=== PATIENT | male | born 1960 | race Hispanic/Latino ===

== ENCOUNTER 2016-12-31 18:33 | Emergency (ER) | payer MEDICARE ==
[~2016-12-31] VITALS: Ht 162.6 cm; Wt 84.0 kg
[~2016-12-31 18:33] MED LIST: ACCUPRIL20 MG OR; ADULT ASA81 MG OR; AFRIN NASAL SP0.05 %; AMANTADINE100 M1 PO; AMARYL4 MG OR; AMLODIPINE10 MG PO; AMLODIPINE5 MG PO; AMOXICILLIN/PO500 MG PO; ASPIRIN CHEWABL81 MG OR; ASPIRIN LOW DOS81 M2 PO; ASPIRIN325 MG PO; AUGMENTIN PO; AVELOX400 MG PO; BAYER ASA325 MG PO; BAYER ASPIRIN E81 MG PO; CEPHALEXIN500 MG PO; CIPRO XR500 M2 PO; CLONIDINE0.1 MG OR; CLONIDINE0.1 MG PO; CLONIDINE0.2 MG OR; CLONIDINE0.2 MG PO; COLCHICINE PO; COLCHICINE0.6 MG PO; CYCLOBENZAPR10 MG PO; DIOVAN80 MG PO; DOCUSATE CAL240 MG PO; DOXYCYCL HYC100 MG PO; EFFIENT10 MG PO; ENALAPRIL10 MG OR; ENALAPRIL10 MG PO; FIORICET PO; FLAGYL ER750 MG PO; FLAGYL500 MG OR; FLEXERIL10 MG PO; FUROSEMIDE40 MG OR; FUROSEMIDE40 MG PO; GENERLAC PO; HCTZ OR; HYDRALAZINE25 MG PO; HYDROCO/APAP1 T10 OR; ISOSORB MONO30 MG PO; KLOR-CON 1010 MEQ OR; LANTUS100 MG/ML SC; LASIX 40 MG TAB40 MG PO; LASIX 40 MG40 MG/TAB PO; LIPITOR10 MG OR; LIPITOR40 M1 PO; LIPITOR40 MG PO; LISINOPRIL10 MG PO; LOPRESSOR50 MG OR; LORTAB 1010 MG PO; LORTAB 5 PO; LORTAB 5/3255 MG PO; LOTRISONE TOP; MECLIZINE25 MG PO; MEDDOSEPAK PO; NAPROSYN500 MG OR; NITROSTAT0.4 MG SL; NORVASC10 M1 PO; NORVASC10 MG OR; NORVASC10 MG PO; NORVASC5 M1 PO; OMEPRAZOLE20 MG PO; OXYCODO-APAP1 TAB PO; PAXIL30 MG PO; PEPCID20 MG PO; PHOSLO667 M1 PO; PLAVIX75 MG PO; RELION 70/30 SC; RENO PO; ROBITUSSIN AC10 ML OR; ROBITUSSIN AC10 ML PO; SODIUM BICARBI650 MG PO; TOPROL XL100 MG PO; TOPROL XL200 M1 PO; TOPROL XL50 MG OR; TRAMADOL HCL50 MG PO; TRUETEST STRIPS VI; TRUETEST STRIPS XX; VASOTEC20 MG PO; VITAMIN D-32000 UNI1 PO; VITAMIN D32000 UNIT PO; XANAX0.5 MG PO; ZITHROMAX250 MG PO; ZOFRAN ODT4 MG PO; ZPAK PO; ZYRTEC-D AL1 PO; [UNRECOGNIZED DRUG - OTHER] OR; [UNRECOGNIZED DRUG - OTHER] SC; [UNRECOGNIZED DRUG - SUPPLY]; [UNRECOGNIZED DRUG - SUPPLY] SC; asa OR
[2016-12-31 19:25] LABS: HEMATOCRIT 29.7 % (39.0-50.0); HEMOGLOBIN 10.2 g/dl (14.0-18.0); IMMATURE GRANULOCYTES 0.3 % (0.0-1.0); MEAN CORPUSCULAR HGB 33.7 pG CALC (26.0-32.0); MEAN CORPUSCULAR HGB CONC 34.3 g/L CALC (32.0-36.0); NEUT# 6.12 thou/uL (1.82-7.42); RED BLOOD COUNT 3.03 mill/uL (4.70-6.10); RED CELL DISTRI WIDTH 14.4 % (11.5-15.5)
[2016-12-31 19:42] LABS: ALBUMIN 3.8 g/dL (3.2-5.0); BILIRUBIN, TOTAL 0.6 mg/dL (0.0-1.4); CALCIUM 9.4 mg/dL (8.4-10.2); CREATININE 4.3 mg/dL (0.7-1.3); TOTAL PROTEIN 7.6 g/dL (6.3-8.2)
[2016-12-31] MEDS ORDERED: METRONIDAZOL500 MG PO (20:07)
[2016-12-31] MEDS ORDERED: CIPROFLOXACN750 MG PO (20:07)
[2016-12-31] MEDS ORDERED: ULTRAM50 M1 PO (20:08)
[2016-12-31 20:16] VITALS: BP 157/84
[2017-01-01] MEDS ORDERED: ZOFRAN ODT4 MG PO (04:46)
[2017-01-01] MEDS ORDERED: ANTIVERT PO (06:45)
[2017-01-01] MEDS ORDERED: PHENERGAN25 MG/TAB PO (06:45)
== END 2016-12-31 20:24 | disposition home or self-care (01) ==
LOC: ED 18:33
DX: K57.32 Diverticulitis of large intestine without perforation or abscess without bleeding (principal); R10.32 Left lower quadrant pain; R10.9 Unspecified abdominal pain; K44.9 Diaphragmatic hernia without obstruction or gangrene

== ENCOUNTER 2017-01-01 03:40 | Emergency (ER) | payer MEDICARE ==
[~2017-01-01] VITALS: Ht 162.6 cm; Wt 84.0 kg
[~2017-01-01 03:40] MED LIST changes: +CIPROFLOXACN750 MG PO; +METRONIDAZOL500 MG PO; +ULTRAM50 M1 PO
[2017-01-01 04:24] LABS: URINE BILIRUBIN - DIPSTICK NEGATIVE (NEGATIVE); URINE BLOOD DIPSTICK TRACE-INTACT (NEGATIVE); URINE CLARITY CLEAR; URINE COLOR YELLOW; URINE GLUCOSE - DIPSTICK 100 mg/dL (NEGATIVE); URINE KETONE NEGATIVE (NEGATIVE); URINE LEUK ESTERASE NEGATIVE (NEGATIVE); URINE NITRITE - DIPSTICK NEGATIVE (Negative); URINE PROTEIN - DIPSTICK 100 mg/dL (NEG-TRACE); URINE SPECIFIC GRAVITY 1.015; URINE UROBILINOGEN - DIPSTICK 0.2 E.U./dL (0.2)
[2017-01-01 04:33] LABS: HEMATOCRIT 32.3 % (39.0-50.0); HEMOGLOBIN 10.9 g/dl (14.0-18.0); IMMATURE GRANULOCYTES 0.6 % (0.0-1.0); MEAN CELL VOLUME 99.7 fL CALC (80.0-100.0); MEAN CORPUSCULAR HGB 33.6 pG CALC (26.0-32.0); MEAN CORPUSCULAR HGB CONC 33.7 g/L CALC (32.0-36.0); NEUT# 7.58 thou/uL (1.82-7.42); RED BLOOD COUNT 3.24 mill/uL (4.70-6.10); RED CELL DISTRI WIDTH 14.5 % (11.5-15.5)
[2017-01-01 04:39] LABS: ALBUMIN 4.2 g/dL (3.2-5.0); BILIRUBIN, TOTAL 0.7 mg/dL (0.0-1.4); CALCIUM 9.6 mg/dL (8.4-10.2); TOTAL PROTEIN 8.2 g/dL (6.3-8.2)
[2017-01-01 04:40] LABS: URINE BACTERIA RARE hpf; URINE MUCUS FEW hpf (NONE-FEW); URINE WBC 0-2 WBC/hpf (0-5)
[2017-01-01] MEDS ORDERED: ZOFRAN ODT4 MG PO (04:46)
[2017-01-01 04:51] LABS: CREATININE 5.3 mg/dL (0.7-1.3)
[2017-01-01] MEDS ORDERED: ANTIVERT PO (06:45)
[2017-01-01] MEDS ORDERED: PHENERGAN25 MG/TAB PO (06:45)
[2017-01-01 06:55] VITALS: BP 164/98
== END 2017-01-01 06:55 | disposition home or self-care (01) ==
LOC: ED 03:40
DX: K57.92 Diverticulitis of intestine, part unspecified, without perforation or abscess without bleeding (principal); R11.2 Nausea with vomiting, unspecified; I12.0 Hypertensive chronic kidney disease with stage 5 chronic kidney disease or end stage renal disease; E11.22 Type 2 diabetes mellitus with diabetic chronic kidney disease; N18.6 End stage renal disease; I25.10 Atherosclerotic heart disease of native coronary artery without angina pectoris; K21.9 Gastro-esophageal reflux disease without esophagitis; Z99.2 Dependence on renal dialysis; Z95.5 Presence of coronary angioplasty implant and graft; Z90.5 Acquired absence of kidney; Z85.528 Personal history of other malignant neoplasm of kidney

== ENCOUNTER 2017-05-09 00:01 | Observation (INO) | payer MEDICARE ==
[~2017-05-09] VITALS: Ht 162.6 cm; Wt 83.6 kg
[~2017-05-09 00:01] MED LIST changes: +ANTIVERT PO; +PHENERGAN25 MG/TAB PO
--- NOTE | 2017-05-09 00:02 | NUR ---
PATIENT BROUGHT IMMEDIATELY BACK TO TREATMENT AREA. UNDRESSED INTO A GOWN. PLACED ON MONITOR. TRIAGE COMPLETED AT BEDSIDE.
--- NOTE | 2017-05-09 00:03 | NUR ---
PT. TO ROOM 12 WITH C/O MIDSTERNAL CP A 9 ON A YUE OF 1-10 SINCE EVENING. SKIN WARM AND DRY TO TOUCH, COLOR WNL, RESP. EVEN AND UNLABORED. O2 ON A 2 LIT/NC.
[2017-05-09 00:42] LABS: HEMOGLOBIN 13.6 g/dl (14.0-18.0); IMMATURE GRANULOCYTES 0.4 % (0.0-1.0); MEAN CELL VOLUME 94.1 fL CALC (80.0-100.0); NEUT# 7.37 thou/uL (1.82-7.42); RED BLOOD COUNT 4.25 mill/uL (4.70-6.10); RED CELL DISTRI WIDTH 12.7 % (11.5-15.5)
--- NOTE | 2017-05-09 00:48 | NUR ---
PO ASA GIVEN PER MD ORDER.
[2017-05-09 00:55] LABS: POTASSIUM 4.4 mmol/l (3.5-5.1); TOTAL PROTEIN 9.9 g/dL (6.3-8.2)
[2017-05-09 01:00] LABS: CREATININE 5.3 mg/dL (0.7-1.3)
[2017-05-09 01:01] LABS: ACT PARTIAL THROMBO TIME 31.3 SECONDS (20.0-32.5)
--- NOTE | 2017-05-09 01:03 | NUR ---
IV PAIN MED GIVEN PER MD ORDER.
--- NOTE | 2017-05-09 01:04 | NUR ---
SL NITROGLYCERIN GIVEN PER MD ORDER.
--- NOTE | 2017-05-09 01:05 | NUR ---
PO ASA GIVEN PER MD ORDER.
--- NOTE | 2017-05-09 01:12 | NUR ---
PT. STATES HIS CP IS NOW DECREASED TO A 7 ON A SCALE OF 1-10.
[2017-05-09] MEDS ORDERED: CETIRIZ/PSE1 TAB PO (01:13)
[2017-05-09] MEDS ORDERED: CIPROFLOXACN500 MG PO (01:14)
[2017-05-09] MEDS ORDERED: FUROSEMIDE20 MG PO (01:17)
--- NOTE | 2017-05-09 02:03 | NUR ---
PT. RESTING ON STRETCHER, NO C/O CP OR SOB OFFERED AT THIS TIME.
--- NOTE | 2017-05-09 03:03 | NUR ---
IN ROOM TO DISCUSS CLINICAL FINDINGS WITH PT. VERBALIZED UNDERSTANDING.
--- NOTE | 2017-05-09 03:04 | NUR ---
PT. MADE AWARE THAT HE IS ADMITTED BUT HE WILL REMAIN IN THE ER UNTIL A BED IS AVAILABLE UPSTAIRS, VERBALIZED UNDERSTANDING.
--- NOTE | 2017-05-09 07:16 | NUR ---
ASSUMED CARE FROM HERBER RN AFTER REPORT AND WALKING ROUNDS. PT AWAKWE, C/O INTERMITTENT CHEST PAIN, UNABLE TO QUANTIFY NUMBER. EKG DONE AND REMAINS UNCHANGED FROM PREVIOUS. REPEAT TROPONIN ORDERED. VSS AT THIS TIME. DR. CARMONA PHONED AT 0715, LEFT MESSAGE TO UPDATE ON CONDITION
--- NOTE | 2017-05-09 07:42 | NUR ---
DR. CARMONA'S ON PHONE, STATES DR. MATHEW DELACRUZ TO [facility] AND HAS LEFT HIS CELL PHONE AT HIS PERSONAL RESIDENCE
--- NOTE | 2017-05-09 07:48 | NUR ---
1800 [facility] HEALTHY HEART FLUID RESTRICTION DIET PROVIDED TO PATIENT.
[2017-05-09 08:54] VITALS: BP 145/70
--- NOTE | 2017-05-09 09:35 | NUR ---
REPORT TO JACEK MAHONEY RN, BEDSIDE HAND OFF AFTER TRANSPORT TO ROOM 274
[2017-05-09 10:20] VITALS: BP 136/75
--- NOTE | 2017-05-09 10:49 | NUR ---
PT ARRIVES TO ROOM 274 VIA STRETCHER FROM ER, ALERT AND ORIENTED X 3. NO COMPLAINT OF CHEST PAIN OR SHORTNESS OF BREATH. PT PROVIDED LASIX UPON ARRIVAL ORDERED. LUNGS CLEAR, RA. DECREASED PEDAL PULSES BUT NORMAL SENSATION. CALL VENEGAS AT BEDSIDE. FAMILY ARRIVES TO VISIT.
--- NOTE | 2017-05-09 12:11 | NUR ---
PT EATS MEAL, NO CHANGE IN STATUS, NO COMPLAINTS OF CP OR SOB.
[2017-05-09 12:25] LABS: HEMATOCRIT 35.9 % (39.0-50.0); HEMOGLOBIN 12.5 g/dl (14.0-18.0); IMMATURE GRANULOCYTES 0.4 % (0.0-1.0); MEAN CORPUSCULAR HGB 32.7 pG CALC (26.0-32.0); MEAN CORPUSCULAR HGB CONC 34.8 g/L CALC (32.0-36.0); NEUT# 7.94 thou/uL (1.82-7.42); RED BLOOD COUNT 3.82 mill/uL (4.70-6.10); RED CELL DISTRI WIDTH 12.6 % (11.5-15.5)
[2017-05-09 12:57] LABS: ALBUMIN 4.3 g/dL (3.2-5.0); BILIRUBIN, TOTAL 0.8 mg/dL (0.0-1.4); CALCIUM 9.3 mg/dL (8.4-10.2); POTASSIUM 4.6 mmol/l (3.5-5.1); TOTAL PROTEIN 8.4 g/dL (6.3-8.2)
[2017-05-09 13:22] LABS: CREATININE 6.2 mg/dL (0.7-1.3)
[2017-05-09 15:15] VITALS: BP 140/73
--- NOTE | 2017-05-09 16:00 | NUR ---
PT CONTINUES BEFORE, NO CHANGE IN STATUS. NO COMPLAINT OF CHEST PAIN OR SHORTNESS OF BREATH. PT WAS SENSING NAUSEA, PROVIDED ZOFRAN, WHICH HELPED. FAMILY HAS GONE HOME.
[2017-05-09 20:15] VITALS: BP 130/72
--- NOTE | 2017-05-09 21:30 | NUR ---
PT RESTING IN SEMI FOWLERS POSITION;PT DENIES ANY CHEST PAIN AT THIS TIME;RESPIRATIONS EVEN AND UNLABORED ON RA;ASSESSMENT COMPLETED;#20G TO RAC FLUSHED AND PATENT;SKIN INTACT;TELE MONITOR IN PLACE;PT DENIES ANY NEEDS AT THIS TIME;SAFETY PRECAUTIONS REINFORCED AND PT VERBALIZES UNDERSTANDING;URINAL AT BEDSIDE;PT RE-EDUCATED TO CALL FOR ASSISTANCE IF NEEDED;BED IN LOWEST POSITION WITH CALL LIGHT IN REACH;WILL CONTINUE TO MONITOR
[2017-05-10 00:58] VITALS: BP 120/68
--- NOTE | 2017-05-10 01:00 | NUR ---
PT RESTING AT BEDSIDE COMPLAINING OF A SORE THROAT,PT DENIES THE NEED TO CALL MD AT THIS TIME;WATER PROVIDED;PT DENIES ANY CHEST PAIN OR NEEDED;CALL LIGHT WITHIN REACH;WILL CONTINUE TO MONITOR
[2017-05-10 04:15] VITALS: BP 126/72
[2017-05-10 04:30] VITALS: BP 126/72
--- NOTE | 2017-05-10 06:05 | NUR ---
PT RESTING IN RECLINER WATCHING TV;PT DENIES ANY PAIN OR DISCOMFORTS AT THIS TIME;SCHEDULED MEDICATION ADMINISTERED;PT DENIES ANY NEEDS;CALL LIGHT WITHIN REACH
[2017-05-10 06:18] LABS: HEMATOCRIT 32.2 % (39.0-50.0); HEMOGLOBIN 11.1 g/dl (14.0-18.0); IMMATURE GRANULOCYTES 0.4 % (0.0-1.0); MEAN CELL VOLUME 95.3 fL CALC (80.0-100.0); MEAN CORPUSCULAR HGB 32.8 pG CALC (26.0-32.0); MEAN CORPUSCULAR HGB CONC 34.5 g/L CALC (32.0-36.0); NEUT# 7.89 thou/uL (1.82-7.42); RED BLOOD COUNT 3.38 mill/uL (4.70-6.10); RED CELL DISTRI WIDTH 12.5 % (11.5-15.5)
[2017-05-10 06:40] LABS: ALBUMIN 3.8 g/dL (3.2-5.0); BILIRUBIN, TOTAL 0.7 mg/dL (0.0-1.4); CALCIUM 9.1 mg/dL (8.4-10.2); POTASSIUM 4.9 mmol/l (3.5-5.1); TOTAL PROTEIN 7.5 g/dL (6.3-8.2)
--- NOTE | 2017-05-10 06:47 | NUR ---
CRITICAL LAB CALLED IN FROM LINN FROM THE LAB; CREATINE OF 7.7; CALLED AND MESSAGE LEFT AT THIS TIME;AWAITING CALL BACK
[2017-05-10 06:49] LABS: CREATININE 7.7 mg/dL (0.7-1.3)
--- NOTE | 2017-05-10 07:00 | NUR ---
RECEIVED BEDSIDE REPORT FROM RIC CAGLE. RESTING IN BED WITH EYES CLOSED, AWAKENS EASILY. RESPS EVEN AND UNLABORED ON ROOM AIR, TELE MONITOR IN PLACE. DENIES PAIN OR DISCOMFORT. PLAN OF CARE DISCUSSED. SAFETY PRECAUTIONS REINFORCED. BED IN LOWEST POSITION WITH WHEELS LOCKED. CALL LIGHT WITHIN REACH. ENCOURAGED PT TO CALL FOR ANY NEEDS.
[2017-05-10 07:21] VITALS: BP 115/58
[2017-05-10 07:58] LABS: URINE BILIRUBIN - DIPSTICK NEGATIVE (NEGATIVE); URINE BLOOD DIPSTICK TRACE-INTACT (NEGATIVE); URINE CLARITY CLEAR; URINE COLOR YELLOW; URINE GLUCOSE - DIPSTICK 100 mg/dL (NEGATIVE); URINE KETONE NEGATIVE (NEGATIVE); URINE LEUK ESTERASE NEGATIVE (NEGATIVE); URINE NITRITE - DIPSTICK NEGATIVE (Negative); URINE PH 7.5 (4.5-8.0); URINE PROTEIN - DIPSTICK 100 mg/dL (NEG-TRACE); URINE SPECIFIC GRAVITY 1.015; URINE UROBILINOGEN - DIPSTICK 0.2 E.U./dL (0.2)
[2017-05-10 07:59] VITALS: BP 115/58
[2017-05-10 08:07] LABS: URINE RBC 0-2 RBC/hpf (0-5); URINE SQUAMOUS EPITHELIAL CELL RARE EPI/hpf (0-FEW); URINE WBC 0-2 WBC/hpf (0-5)
--- NOTE | 2017-05-10 08:50 | NUR ---
DR CARMONA IN WITH PT, NEW ORDERS RECEIVED.
--- NOTE | 2017-05-10 09:35 | NUR ---
Discharge instructions given. Patient verbalizes understanding of same. Discharged in stable condition via Wheelchair to Home with spouse. All belongings sent with pt.
== END 2017-05-10 09:35 | disposition home or self-care (01) ==
LOC: ED 00:01 → ED-I 02:29 → ED 02:42 → ED-I 02:43 → UNDODEPER 07:27 → MS2 09:27
PROVIDERS: Emergency Medicine; ADMIT Internal Medicine Geriatric Medicine; ATTEND Internal Medicine Geriatric Medicine
DX: R07.9 Chest pain, unspecified (principal); I13.2 Hypertensive heart and chronic kidney disease with heart failure and with stage 5 chronic kidney disease, or end stage renal disease; E11.22 Type 2 diabetes mellitus with diabetic chronic kidney disease; N18.6 End stage renal disease; I50.9 Heart failure, unspecified; I25.10 Atherosclerotic heart disease of native coronary artery without angina pectoris; I25.2 Old myocardial infarction; K21.9 Gastro-esophageal reflux disease without esophagitis; F03.90 Unspecified dementia, unspecified severity, without behavioral disturbance, psychotic disturbance, mood disturbance, and anxiety; Z86.73 Personal history of transient ischemic attack (TIA), and cerebral infarction without residual deficits; Z95.5 Presence of coronary angioplasty implant and graft; Z90.5 Acquired absence of kidney; Z99.2 Dependence on renal dialysis; Z85.528 Personal history of other malignant neoplasm of kidney
CPT/HCPCS: G0378

== ENCOUNTER 2017-07-08 14:15 | Emergency (ER) | payer MEDICARE ==
[~2017-07-08] VITALS: Ht 162.6 cm; Wt 82.8 kg
[~2017-07-08 14:15] MED LIST changes: +CETIRIZ/PSE1 TAB PO; +CIPROFLOXACN500 MG PO; +FUROSEMIDE20 MG PO
[2017-07-08] MEDS ORDERED: LORTAB 5/3255 MG PO (15:38)
[2017-07-08 15:42] VITALS: BP 140/79
== END 2017-07-08 15:45 | disposition home or self-care (01) ==
LOC: ED 14:15
DX: M54.9 Dorsalgia, unspecified (principal); R10.2 Pelvic and perineal pain; R10.11 Right upper quadrant pain; I12.0 Hypertensive chronic kidney disease with stage 5 chronic kidney disease or end stage renal disease; N18.6 End stage renal disease; Z99.2 Dependence on renal dialysis

== ENCOUNTER 2017-07-19 21:29 | Emergency (ER) | payer MEDICARE ==
[~2017-07-19] VITALS: Ht 162.6 cm; Wt 83.6 kg
[2017-07-19] MEDS ORDERED: FLEXERIL PO (23:48)
[2017-07-19] MEDS ORDERED: PERCOCET 5/325M1 TAB PO (23:48)
[2017-07-19 23:52] VITALS: BP 142/77
== END 2017-07-19 23:55 | disposition home or self-care (01) ==
LOC: ED 21:29
DX: M54.31 Sciatica, right side (principal)

== ENCOUNTER 2017-11-20 23:55 | Emergency (ER) | payer MEDICARE, MEDICAID ==
[~2017-11-20] VITALS: Ht 162.6 cm; Wt 87.8 kg
[~2017-11-20 23:55] MED LIST changes: +FLEXERIL PO; -FUROSEMIDE20 MG PO; +NITROSTAT0.3 MG SL; +PERCOCET 5/325M1 TAB PO
[2017-11-21] MEDS ORDERED: PLAVIX75 MG PO (00:08)
[2017-11-21 01:32] LABS: HEMATOCRIT 32.1 % (39.0-50.0); HEMOGLOBIN 10.8 g/dl (14.0-18.0); IMMATURE GRANULOCYTES 0.5 % (0.0-1.0); MEAN CELL VOLUME 98.2 fL CALC (80.0-100.0); MEAN CORPUSCULAR HGB CONC 33.6 g/L CALC (32.0-36.0); NEUT# 6.25 thou/uL (1.82-7.42); RED BLOOD COUNT 3.27 mill/uL (4.70-6.10); RED CELL DISTRI WIDTH 13.2 % (11.5-15.5)
[2017-11-21 01:44] LABS: BILIRUBIN, TOTAL 0.4 mg/dL (0.0-1.4)
[2017-11-21 01:46] LABS: CREATININE 5.5 mg/dL (0.7-1.3); POTASSIUM 4.3 mmol/l (3.5-5.1)
[2017-11-21 03:26] VITALS: BP 116/39
== END 2017-11-21 03:37 | disposition home or self-care (01) ==
LOC: ED 23:55
PROVIDERS: Family Medicine
DX: K59.00 Constipation, unspecified (principal); R11.0 Nausea; R10.33 Periumbilical pain; I12.0 Hypertensive chronic kidney disease with stage 5 chronic kidney disease or end stage renal disease; N18.6 End stage renal disease; Z99.2 Dependence on renal dialysis

== ENCOUNTER 2017-12-11 01:02 | Emergency (ER) | payer MEDICARE, MEDICAID ==
[~2017-12-11] VITALS: Ht 162.6 cm; Wt 87.8 kg
[2017-12-11 02:04] LABS: HEMATOCRIT 36.5 % (39.0-50.0); HEMOGLOBIN 12.3 g/dl (14.0-18.0); IMMATURE GRANULOCYTES 0.3 % (0.0-1.0); MEAN CELL VOLUME 97.9 fL CALC (80.0-100.0); MEAN CORPUSCULAR HGB CONC 33.7 g/L CALC (32.0-36.0); NEUT# 5.64 thou/uL (1.82-7.42); RED BLOOD COUNT 3.73 mill/uL (4.70-6.10); RED CELL DISTRI WIDTH 13.5 % (11.5-15.5)
[2017-12-11 02:22] LABS: ALBUMIN 4.2 g/dL (3.2-5.0); BILIRUBIN, TOTAL 0.5 mg/dL (0.0-1.4); POTASSIUM 3.9 mmol/l (3.5-5.1)
[2017-12-11 02:24] LABS: CREATININE 8.3 mg/dL (0.7-1.3)
[2017-12-11] MEDS ORDERED: MIRALAX3350 N1 PO (02:35)
[2017-12-11 02:49] VITALS: BP 183/87
== END 2017-12-11 03:02 | disposition home or self-care (01) ==
LOC: ED 01:02
PROVIDERS: Emergency Medicine
DX: K59.00 Constipation, unspecified (principal); E11.22 Type 2 diabetes mellitus with diabetic chronic kidney disease; I12.0 Hypertensive chronic kidney disease with stage 5 chronic kidney disease or end stage renal disease; N18.6 End stage renal disease; Z99.2 Dependence on renal dialysis

== ENCOUNTER 2018-01-18 10:41 | Observation (INO) | payer MEDICARE ==
[~2018-01-18] VITALS: Ht 162.6 cm; Wt 87.3 kg
[~2018-01-18 10:41] MED LIST changes: +MIRALAX3350 N1 PO
[2018-01-18] MEDS ORDERED: FUROSEMIDE20 MG PO (10:53)
[2018-01-18] MEDS ORDERED: ASPIRIN LOW81 M1 PO (10:53)
[2018-01-18] MEDS ORDERED: ATORVASTATIN CA40 MG PO ×2 (10:54→10:56)
[2018-01-18] MEDS ORDERED: NORVASC5 M1 PO (10:56)
[2018-01-18] MEDS ORDERED: CLONIDINE0.1 MG PO (10:57)
[2018-01-18] MEDS ORDERED: TOPROL XL PO (10:58)
[2018-01-18] MEDS ORDERED: LANTUS100 UNIT/M SC (10:58)
[2018-01-18] MEDS ORDERED: NITRO-DUR0.2 MG/HR TD (10:59)
[2018-01-18] MEDS ORDERED: OMEPRAZOLE10 MG PO (10:59)
[2018-01-18] MEDS ORDERED: VITAMIN D2000 UNI2 (11:00)
[2018-01-18] MEDS ORDERED: RENO PO (11:00)
[2018-01-18] MEDS ORDERED: ULTRAM50 M1 PO (11:01)
[2018-01-18] MEDS ORDERED: PHOSLO667 MG PO (11:01)
[2018-01-18 11:22] LABS: HEMATOCRIT 36.1 % (39.0-50.0); HEMOGLOBIN 11.9 g/dl (14.0-18.0); IMMATURE GRANULOCYTES 0.5 % (0.0-1.0); MEAN CELL VOLUME 97.6 fL CALC (80.0-100.0); MEAN CORPUSCULAR HGB 32.2 pG CALC (26.0-32.0); NEUT# 7.02 thou/uL (1.82-7.42); RED BLOOD COUNT 3.7 mill/uL (4.70-6.10); RED CELL DISTRI WIDTH 13.2 % (11.5-15.5)
[2018-01-18 11:41] LABS: POTASSIUM 3.8 mmol/l (3.5-5.1)
[2018-01-18 11:51] LABS: CREATININE 7.2 mg/dL (0.7-1.3)
[2018-01-18 14:07] VITALS: BP 142/73
[2018-01-18 14:23] VITALS: BP 148/79
[2018-01-18 19:12] VITALS: BP 150/74
[2018-01-19] VITALS (7 sets, daily range): BP systolic 119–147; BP diastolic 58–73
[2018-01-19 05:54] LABS: ALBUMIN 3.7 g/dL (3.2-5.0); BILIRUBIN, TOTAL 0.4 mg/dL (0.0-1.4); MAGNESIUM 1.8 mg/dL (1.6-2.3); TOTAL PROTEIN 7.1 g/dL (6.3-8.2)
[2018-01-19 05:55] LABS: CHOLESTEROL HDL RATIO 3.3 (<4.4 (CALC)); POTASSIUM 4.7 mmol/l (3.5-5.1)
[2018-01-19 05:56] LABS: CREATININE 8.1 mg/dL (0.7-1.3)
[2018-01-19 06:06] LABS: HEMATOCRIT 32.5 % (39.0-50.0); IMMATURE GRANULOCYTES 1.5 % (0.0-1.0); MEAN CELL VOLUME 97.9 fL CALC (80.0-100.0); MEAN CORPUSCULAR HGB 33.1 pG CALC (26.0-32.0); MEAN CORPUSCULAR HGB CONC 33.8 g/L CALC (32.0-36.0); NEUT# 6.29 thou/uL (1.82-7.42); RED BLOOD COUNT 3.32 mill/uL (4.70-6.10); RED CELL DISTRI WIDTH 13.3 % (11.5-15.5)
[2018-01-20] VITALS: BP 123/63
[2018-01-20 04:35] VITALS: BP 122/70
[2018-01-20 05:31] VITALS: BP 127/62
[2018-01-20 08:02] VITALS: BP 157/75
[2018-01-20 08:05] VITALS: BP 157/75
== END 2018-01-20 09:19 | disposition home or self-care (01) ==
LOC: ED 10:41 → ED-I 12:44 → ED 12:55 → MS2 12:56
PROVIDERS: Family Medicine; ADMIT Internal Medicine Geriatric Medicine; ATTEND Internal Medicine Geriatric Medicine
DX: R55 Syncope and collapse (principal); E86.1 Hypovolemia; R42 Dizziness and giddiness; R11.2 Nausea with vomiting, unspecified; R51 Headache; E11.22 Type 2 diabetes mellitus with diabetic chronic kidney disease; I12.0 Hypertensive chronic kidney disease with stage 5 chronic kidney disease or end stage renal disease; N18.6 End stage renal disease; Z99.2 Dependence on renal dialysis; I25.10 Atherosclerotic heart disease of native coronary artery without angina pectoris; G45.9 Transient cerebral ischemic attack, unspecified; F03.90 Unspecified dementia, unspecified severity, without behavioral disturbance, psychotic disturbance, mood disturbance, and anxiety; F41.9 Anxiety disorder, unspecified; C64.9 Malignant neoplasm of unspecified kidney, except renal pelvis; I25.2 Old myocardial infarction; Z95.5 Presence of coronary angioplasty implant and graft

== ENCOUNTER 2018-02-10 16:37 | Observation (INO) | payer MEDICARE ==
[~2018-02-10] VITALS: Ht 162.6 cm; Wt 86.8 kg
[~2018-02-10 16:37] MED LIST changes: +ASPIRIN LOW81 M1 PO; +ATORVASTATIN CA40 MG PO; +LANTUS100 UNIT/M SC; +LASIX 20 MG TAB20 MG PO; +NITRO-DUR0.4 MG/HR TD; +OMEPRAZOLE10 MG PO; +PHOSLO667 MG PO; +TOPROL XL PO; +VITAMIN D2000 UNI2 PO
[2018-02-10 17:53] LABS: HEMATOCRIT 33.2 % (39.0-50.0); IMMATURE GRANULOCYTES 0.5 % (0.0-1.0); MEAN CELL VOLUME 97.6 fL CALC (80.0-100.0); MEAN CORPUSCULAR HGB 32.4 pG CALC (26.0-32.0); MEAN CORPUSCULAR HGB CONC 33.1 g/L CALC (32.0-36.0); NEUT# 6.72 thou/uL (1.82-7.42); RED BLOOD COUNT 3.4 mill/uL (4.70-6.10); RED CELL DISTRI WIDTH 13.4 % (11.5-15.5)
[2018-02-10 17:59] LABS: POTASSIUM 4.2 mmol/l (3.5-5.1)
[2018-02-10 19:20] VITALS: BP 147/66
[2018-02-10 23:00] VITALS: BP 140/70
[2018-02-11 03:00] VITALS: BP 136/47
[2018-02-11 05:23] LABS: HEMATOCRIT 31.6 % (39.0-50.0); HEMOGLOBIN 10.5 g/dl (14.0-18.0); IMMATURE GRANULOCYTES 0.9 % (0.0-1.0); MEAN CELL VOLUME 98.1 fL CALC (80.0-100.0); MEAN CORPUSCULAR HGB 32.6 pG CALC (26.0-32.0); MEAN CORPUSCULAR HGB CONC 33.2 g/L CALC (32.0-36.0); NEUT# 5.47 thou/uL (1.82-7.42); RED BLOOD COUNT 3.22 mill/uL (4.70-6.10); RED CELL DISTRI WIDTH 13.1 % (11.5-15.5)
[2018-02-11 05:39] LABS: ALBUMIN 3.3 g/dL (3.2-5.0); BILIRUBIN, TOTAL 0.4 mg/dL (0.0-1.4); POTASSIUM 4.3 mmol/l (3.5-5.1); TOTAL PROTEIN 6.6 g/dL (6.3-8.2)
[2018-02-11 05:44] LABS: CREATININE 6.1 mg/dL (0.7-1.3)
[2018-02-11 07:00] VITALS: BP 150/67
[2018-02-11 11:00] VITALS: BP 132/61
[2018-02-11] MEDS ORDERED: PHOSLO667 M1 PO (14:02)
[2018-02-11 15:00] VITALS: BP 121/61
[2018-02-11] MEDS ORDERED: CLONIDINE0.1 MG PO (17:57)
[2018-02-11 18:00] VITALS: BP 166/73
[2018-02-11 21:15] VITALS: BP 145/70
[2018-02-12 00:06] VITALS: BP 152/76
== END 2018-02-12 03:50 | disposition home or self-care (01) ==
LOC: ICU 16:37
PROVIDERS: ADMIT Internal Medicine Geriatric Medicine; ATTEND Internal Medicine Geriatric Medicine
DX: R53.1 Weakness (principal); R11.2 Nausea with vomiting, unspecified; R42 Dizziness and giddiness; I95.9 Hypotension, unspecified; E11.22 Type 2 diabetes mellitus with diabetic chronic kidney disease; I12.0 Hypertensive chronic kidney disease with stage 5 chronic kidney disease or end stage renal disease; N18.6 End stage renal disease; Z99.2 Dependence on renal dialysis; I25.10 Atherosclerotic heart disease of native coronary artery without angina pectoris; I25.2 Old myocardial infarction; I51.7 Cardiomegaly; F03.90 Unspecified dementia, unspecified severity, without behavioral disturbance, psychotic disturbance, mood disturbance, and anxiety; K21.9 Gastro-esophageal reflux disease without esophagitis; M19.90 Unspecified osteoarthritis, unspecified site; F41.9 Anxiety disorder, unspecified; Z90.5 Acquired absence of kidney; Z85.528 Personal history of other malignant neoplasm of kidney; Z86.73 Personal history of transient ischemic attack (TIA), and cerebral infarction without residual deficits
CPT/HCPCS: S0164

== ENCOUNTER 2018-11-12 12:36 | Observation (INO) | payer MEDICARE, MEDICAID ==
[~2018-11-12] VITALS: Ht 162.6 cm; Wt 86.8 kg
--- NOTE | 2018-11-12 12:46 | NUR ---
ADMINISTERED NITRO AND ASA ORDERED FOR CP 04/04.
--- NOTE | 2018-11-12 12:54 | NUR ---
PT RELATES MIDSTERNAL CP 04/04. VSS. ADMINISTERED NITRO SL. SKIN PWD.
[2018-11-12 12:57] LABS: HEMATOCRIT 32.5 % (39.0-50.0); HEMOGLOBIN 10.6 g/dl (14.0-18.0); IMMATURE GRANULOCYTES 0.5 % (0.0-5.0); MEAN CELL VOLUME 95.6 fL CALC (80.0-100.0); MEAN CORPUSCULAR HGB 31.2 pG CALC (26.0-32.0); MEAN CORPUSCULAR HGB CONC 32.6 g/L CALC (32.0-36.0); NEUT# 14.99 thou/uL (1.82-7.42); RED BLOOD COUNT 3.4 mill/uL (4.70-6.10)
--- NOTE | 2018-11-12 13:10 | NUR ---
PT RESTING COMFORTABLY IN NO DISTRESS. STATES RESOLUTION OF CP. SKIN PWD. RESP EVEN AND UNLABORED.
[2018-11-12 13:19] LABS: POTASSIUM 4.3 mmol/l (3.5-5.1)
[2018-11-12 13:20] LABS: CREATININE 3.9 mg/dL (0.7-1.3)
--- NOTE | 2018-11-12 13:54 | NUR ---
PT RESTING COMFORTABLY SUPINE ON STRETCHER WITH EYES CLOSED. ROUSES EASILY. PT DENIES CP OR PRESSURE AT THIS TIME. VSS. SKIN PWD
--- NOTE | 2018-11-12 14:03 | NUR ---
EDP AT BEDSIDE TO DISCUSS CLINICAL FINDINGS AND ADMISSION WITH PT AND SPOUSE. BOTH VERBALIZE AGREEMENT
--- NOTE | 2018-11-12 15:03 | NUR ---
aware of admit and agreeable. pt states he has been "out of my nitropatch for about three weeks". pt denies cp or pressure or sob at this time.
--- NOTE | 2018-11-12 16:13 | NUR ---
called report to Jenise.
--- NOTE | 2018-11-12 16:15 | NUR ---
transported to ut via stretcher on tele as ordered
[2018-11-12 16:47] VITALS: BP 153/59
--- NOTE | 2018-11-12 16:52 | NUR ---
REPORT RECEIVED FROM RADHA IN ED, PT ARRIVED ON UNIT @ 1640 VIA STRETCHER BY ED STAFF, ALERT AND ORIENTED X 4, C/O THROBBING HEADACHE AT 10/10 AT THIS TIME AND STATED HE INFORMED ED STAFF WHO PROMISED HIM TYLENOL BUT NEVER BROUGHT IT TO HIM. ORIENTED TO ROOM AND CALL THEO, SPOUSE AT BEDSIDE, WILL CONTINUE TO MONITOR.
[2018-11-12 17:09] VITALS: BP 153/59
[2018-11-12 20:11] VITALS: BP 140/66
--- NOTE | 2018-11-12 21:05 | NUR ---
ORDER CLARIFIED PT TO REMAIN ADMITTED TO [facility] AT THIS TIME.
--- NOTE | 2018-11-12 23:20 | NUR ---
PATIENT C/O NAUSEA AND BEING COLD AND FEELING FEVER-CAROL, OBTAINED TEMP- 101.6. PRN ORDERS FOR TYLENOL & ZOFRAN GIVEN TO PATIENT.
[2018-11-12 23:38] VITALS: BP 147/69
--- NOTE | 2018-11-13 00:20 | NUR ---
RE-ASSESSED FEVER & NAUSEA, PATIENT STATED NAUSEA HAD SUB-SIDE BUT WAS STILL FEELING COLD & FEVER-CAROL. TEMP RE-TAKEN AND READING AT 101.4. NO C/O PAIN AND NO CURRENT NEEDS EXPRESSED.
--- NOTE | 2018-11-13 00:56 | NUR ---
REPORT RECEIVED FROM JO LIGHT. PATIENT IS A NEW ADMIT FROM ER ARRIVED ON FLOOR AROUND 1700. PATIENT IS LAYING IN BED, AWAKE AND ORIENTED, IS PRESENT AT THE BEDSIDE. PATIENT HAS A #22 IN THE RAC-CLEAN, DRY, AND INTACT WITH D5 1/2 @ 75ML/HR. NO CURRENT C/O PAIN OR NEEDS EXPRESSED. BED IN LOWEST POSITION, WHEELS LOCKED, AND CALL LIGHT IN REACH. PATIENT INSTRUCTED TO CALL IF HE NEEDED ANYTHING, PATIENT VERABALLY EXPRESSED UNDERSTANDING.
[2018-11-13 04:05] LABS: CHOLESTEROL HDL RATIO 2.7 (<4.4 (CALC))
[2018-11-13 04:06] LABS: ALBUMIN 3.6 g/dL (3.2-5.0); BILIRUBIN, TOTAL 1.1 mg/dL (0.0-1.4); POTASSIUM 4.6 mmol/l (3.5-5.1); TOTAL PROTEIN 6.7 g/dL (6.3-8.2)
[2018-11-13 04:19] LABS: CREATININE 5.5 mg/dL (0.7-1.3)
--- NOTE | 2018-11-13 04:32 | NUR ---
DR CARMONA NOTIFIED OF CRITICAL LAB VALUES, COMMENT PATIENT IS CURRENTLY ON DIALYSIS, NO NEW ORDERS GIVEN AT THIS TIME.
[2018-11-13 04:52] VITALS: BP 125/61
[2018-11-13 05:03] LABS: HEMATOCRIT 29.6 % (39.0-50.0); HEMOGLOBIN 9.6 g/dl (14.0-18.0); IMMATURE GRANULOCYTES 0.3 % (0.0-5.0); MEAN CELL VOLUME 95.8 fL CALC (80.0-100.0); MEAN CORPUSCULAR HGB 31.1 pG CALC (26.0-32.0); MEAN CORPUSCULAR HGB CONC 32.4 g/L CALC (32.0-36.0); NEUT# 12.97 thou/uL (1.82-7.42); RED BLOOD COUNT 3.09 mill/uL (4.70-6.10)
--- NOTE | 2018-11-13 07:02 | NUR ---
PATIENT LAYING IN BED EYES CLOSED AND APPEARS TO BE RESTING COMFORTABLY, RESP ARE QUIET AND NON-LABORED, NO S/SX OF DISTRESS OR DISCOMFORT NOTED AT THIS TIME.
--- NOTE | 2018-11-13 07:30 | NUR ---
REPORT RECEIVED FROM TSERING EDMONDS. PT SUPINE IN BED. DENIES PAIN. REPORTING OF CONCERNS ENCORUAGED. PLAN OF CARE DISCUSSED. CALL LIGHT REVIEWED AND IN REACH. PT STATES UNDERSTANDING.
[2018-11-13 07:58] VITALS: BP 140/67
--- NOTE | 2018-11-13 08:30 | NUR ---
DR. CARMONA IN TO SEE PT. PLAN OF CARE UPDATED.
--- NOTE | 2018-11-13 09:30 | NUR ---
TEMP 100.5, REPORTS HEADACHE. TYLENOL PO ADMINISTERED. WILL CONTINUE TO MONITOR.
[2018-11-13 11:18] VITALS: BP 127/61
[2018-11-13 12:01] LABS: HEMOGLOBIN 8.8 g/dl (14.0-18.0); IMMATURE GRANULOCYTES 0.5 % (0.0-5.0); MEAN CELL VOLUME 96.1 fL CALC (80.0-100.0); MEAN CORPUSCULAR HGB 31.3 pG CALC (26.0-32.0); MEAN CORPUSCULAR HGB CONC 32.6 g/L CALC (32.0-36.0); NEUT# 11.41 thou/uL (1.82-7.42); RED BLOOD COUNT 2.81 mill/uL (4.70-6.10)
--- NOTE | 2018-11-13 12:06 | NUR ---
TEMP NOW 101. DR. CARMONA NOTIFIED. ORDERS FOR BLOOD CX, CBC, UA AND ROCEPHIN IV. ORDERS FAXED TO PHARMACY. PT UPDATED ON PLAN OF CARE. STATES UNDERSTANDING.
--- NOTE | 2018-11-13 13:09 | NUR ---
PT LEFT FLOOR VIA WHEELCHAIR ACCOMPANIED BY VOLUNTEER TO XRAY.
[2018-11-13 15:35] VITALS: BP 135/47
--- NOTE | 2018-11-13 16:37 | NUR ---
PT'S IN BED W/ PT. PT DENIES PAIN, REPORTS RELIEF AFTER HYDROCODONE ADMINISTRATION.
--- NOTE | 2018-11-13 19:40 | NUR ---
PT RESTING IN BED, NO SIGNS OF DISTRESS NOTED, RESP EVEN AND UNLABORED. PT ALERT AND ORIENTED X3, DISCUSSED POC, IVF INFUSING TO RAC IV. PT HAS A FISTULA TO ANDRY, +BRUITT +THRILL. ASSESSMENT COMPLETED AT THIS TIME. CALL LIGHT IN REACH,CONTINUE TO MONITOR.
[2018-11-13 19:44] VITALS: BP 151/63
--- NOTE | 2018-11-13 20:55 | NUR ---
PT SITTING ON SIDE OF BED, FAMILY AT BEDSIDE, PT STATES HE WANTS TO SHOWER. IV SITE COVERED. MEDICATED PER OCT. PT ALLOWED TO SHOWER, INSTRUCTED TO CALL FOR ASSISTANCE.
[2018-11-13 23:51] VITALS: BP 133/65
--- NOTE | 2018-11-14 | NUR ---
PT RESTING IN BED, S/O AT BEDSIDE, NEW BAG OF IVF INITIATED, PT VOICES NO NEEDS OR COMPLAINTS AT THIS TIME.CALL LIGHT IN REACH,CONTINUE TO MONITOR.
[2018-11-14 04:13] VITALS: BP 149/77
[2018-11-14 06:21] LABS: URINE BILIRUBIN - DIPSTICK NEGATIVE (NEGATIVE); URINE BLOOD DIPSTICK TRACE-LYSED (NEGATIVE); URINE COLOR YELLOW; URINE GLUCOSE - DIPSTICK 250 mg/dL (NEGATIVE); URINE KETONE NEGATIVE (NEGATIVE); URINE LEUK ESTERASE NEGATIVE (Negative); URINE NITRITE - DIPSTICK NEGATIVE (Negative); URINE PROTEIN - DIPSTICK 100 mg/dL (NEG-TRACE); URINE UROBILINOGEN - DIPSTICK 0.2 E.U./dL (0.2)
[2018-11-14 06:23] LABS: URINE CLARITY CLEAR
--- NOTE | 2018-11-14 07:00 | NUR ---
REPORT RECEIVED FROM ROYCE. PT IS RESTING IN BED AND PT DENIES ANY NEEDS AT THIS TIME. CALL LIGHT IN REACH.
[2018-11-14 07:07] LABS: URINE SQUAMOUS EPITHELIAL CELL RARE EPI/hpf (0-FEW)
[2018-11-14 07:46] VITALS: BP 148/77
--- NOTE | 2018-11-14 08:10 | NUR ---
DR. CARMONA AT BEDSIDE TO DISCUSS POC WITH PT. ASSESSMENT DONE. PT IS A&O X3. FISTULA IN LEFT ARM + BRUIT AND + THRILL. IVF INFUSING WELL. CALL LIGHT IN REACH.
--- NOTE | 2018-11-14 11:23 | NUR ---
PT IS SITTING IN CHAIR. MEDICATED PT WITH LORTAB FOR A HEADCHE SEE EMAR. IN ROOM. PT STATED HE HAS SET UP AN APPOINTMENT FOR HIS DIALYSIS TOMORROW BEFORE 12PM. PT DENIES ANY OTHER NEEDS AT THIS TIME. CALL LIGHT IN REACH.
[2018-11-14 11:33] VITALS: BP 158/78
--- NOTE | 2018-11-14 15:42 | NUR ---
PT IS RESTING IN HIS LEFT SIDE. PT STATED HE IS FEELING BETTER. PT STATED NO PAIN AT THIS TIME. CALL LIGHT IN REACH.
[2018-11-14 16:00] VITALS: BP 152/55
--- NOTE | 2018-11-14 19:00 | NUR ---
REPORT RECIVED FROM JO HU. PT RESTING IN BED, FAMILY AT BEDSIDE VISITING. NO SIGNS OR SYMPTOMS OF DISTRESS. SAFETY PRECAUTIONS IN PLACE. WILL CONTINUE TO MONITOR.
[2018-11-14 19:05] VITALS: BP 157/86
--- NOTE | 2018-11-14 21:30 | NUR ---
PT RESTING IN BED, GRANDAUGHTERS AT BEDSIDE VISITING. PT ALERT AND ORIENTED. RESPIRATIONS EVEN AND UNLABORED, LUNGS SOUND CLEAR. PEDAL PULSES WEAK. FISULA NOTED IN LEFT UPPER ARM, POSITIVE BRUIT, POSITIVE THRILL. PT DENIES ANY PAIN OR DISCOMFORT AT THIS TIME. SAFETY PRECAUTIONS IN PLACE, CALL LIGHT WITHIN REACH, WILL CONTINUE TO MONITOR.
[2018-11-14 23:42] VITALS: BP 144/76
--- NOTE | 2018-11-15 02:13 | NUR ---
PT REPORTS HAVING NAUSEA AT THIS TIME. PT MEDICATED WITH ZOFRAN PER EMAR ORDERS. PT DENIES ANY OTHER NEEDS, SAFETY PRECAUTIONS IN PLACE. WILL CONTINUE TO MONITOR.
[2018-11-15 04:32] VITALS: BP 144/78
--- NOTE | 2018-11-15 04:38 | NUR ---
PT RESTING IN BED. NO SIGNS OR SYMTOMS OF DISTRESS. SAFETY PRECAUTIONS IN PLACE, WILL CONTINUE TO MONITOR.
[2018-11-15 04:50] LABS: HEMATOCRIT 26.4 % (39.0-50.0); HEMOGLOBIN 8.6 g/dl (14.0-18.0); IMMATURE GRANULOCYTES 0.3 % (0.0-5.0); MEAN CORPUSCULAR HGB 30.9 pG CALC (26.0-32.0); MEAN CORPUSCULAR HGB CONC 32.6 g/L CALC (32.0-36.0); NEUT# 6.81 thou/uL (1.82-7.42); RED BLOOD COUNT 2.78 mill/uL (4.70-6.10); RED CELL DISTRI WIDTH 13.6 % (11.5-15.5)
[2018-11-15 04:59] LABS: ALBUMIN 3.3 g/dL (3.2-5.0); BILIRUBIN, TOTAL 0.7 mg/dL (0.0-1.4); POTASSIUM 4.5 mmol/l (3.5-5.1); TOTAL PROTEIN 6.2 g/dL (6.3-8.2)
[2018-11-15 05:08] LABS: CREATININE 9.9 mg/dL (0.7-1.3)
[2018-11-15 07:52] VITALS: BP 155/81
[2018-11-15 08:20] VITALS: BP 155/81
--- NOTE | 2018-11-15 08:20 | NUR ---
ASSESSMENT DONE . PT IS A&O X3. PT STATED HAS UPSET STOMACH MEDICATED PT WITH ZOFRAN. LEFT ARM FISTULA IS + BRUIT AND + THRILL. PT WAITING TO BE DC SO HE CAN GO TO HIS DIALYSIS APPOINTMENT AT 11AM TODAY. PT DENIES ANY OTHER NEEDS AT THIS TIME. CALL LIGHT IN REACH.
--- NOTE | 2018-11-15 08:50 | NUR ---
NOTIFIED THAT I MEDICATED PT WITH ZOFRAN FOR AN UPSET STOMACH. DR. CARMONA AT BEDSIDE TO [facility] AND DC TODAY. CALL LIGHT IN REACH.
[2018-11-15] MEDS ORDERED: ROCEPHIN 1 GM1 GM IV (09:17)
--- NOTE | 2018-11-15 09:59 | NUR ---
Discharge instructions given. Patient verbalizes understanding of same. Discharged in stable condition via Ambulatory to Home with spouse. All belongings sent with pt.
== END 2018-11-15 10:00 | disposition home or self-care (01) ==
LOC: ED 12:36 → ED-I 13:35 → ED 13:54 → MS2 13:55
PROVIDERS: Family Medicine; ADMIT Internal Medicine Geriatric Medicine; ATTEND Internal Medicine Geriatric Medicine
DX: I24.9 Acute ischemic heart disease, unspecified (principal); J18.9 Pneumonia, unspecified organism; I25.10 Atherosclerotic heart disease of native coronary artery without angina pectoris; I12.0 Hypertensive chronic kidney disease with stage 5 chronic kidney disease or end stage renal disease; E11.22 Type 2 diabetes mellitus with diabetic chronic kidney disease; N18.6 End stage renal disease; E11.21 Type 2 diabetes mellitus with diabetic nephropathy; I25.2 Old myocardial infarction; Z85.528 Personal history of other malignant neoplasm of kidney; Z99.2 Dependence on renal dialysis; Z90.5 Acquired absence of kidney; Z95.5 Presence of coronary angioplasty implant and graft; R06.02 Shortness of breath
CPT/HCPCS: G0378

== ENCOUNTER 2018-12-21 14:47 | Emergency (ER) | payer MEDICARE, MEDICAID ==
[~2018-12-21] VITALS: Ht 162.6 cm; Wt 85.0 kg
[~2018-12-21 14:47] MED LIST changes: +ROCEPHIN 1 GM1 GM IV
[2018-12-21 15:26] LABS: HEMATOCRIT 32.2 % (39.0-50.0); HEMOGLOBIN 10.2 g/dl (14.0-18.0); IMMATURE GRANULOCYTES 0.5 % (0.0-5.0); MEAN CELL VOLUME 96.7 fL CALC (80.0-100.0); MEAN CORPUSCULAR HGB 30.6 pG CALC (26.0-32.0); MEAN CORPUSCULAR HGB CONC 31.7 g/L CALC (32.0-36.0); NEUT# 10.1 thou/uL (1.82-7.42); RED BLOOD COUNT 3.33 mill/uL (4.70-6.10)
[2018-12-21 15:56] LABS: BILIRUBIN, TOTAL 0.8 mg/dL (0.0-1.4)
[2018-12-21 16:07] LABS: ALBUMIN 4.3 g/dL (3.2-5.0); CREATININE 8.4 mg/dL (0.7-1.3); POTASSIUM 5.8 mmol/l (3.5-5.1); TOTAL PROTEIN 7.7 g/dL (6.3-8.2)
[2018-12-21 17:00] LABS: C. DIFFICILE TOXIN A&B NEGATIVE (NEGATIVE)
[2018-12-21] MEDS ORDERED: METRONIDAZOL500 MG PO (17:08)
[2018-12-21] MEDS ORDERED: ZOFRAN4 M1 PO (17:09)
[2018-12-21 17:35] VITALS: BP 164/75
[2018-12-22] MEDS ORDERED: CATAPRES0.1 MG PO (02:31)
== END 2018-12-21 17:35 | disposition home or self-care (01) ==
LOC: ED 14:47
PROVIDERS: Emergency Medicine
DX: R11.10 Vomiting, unspecified (principal); R19.7 Diarrhea, unspecified; E11.9 Type 2 diabetes mellitus without complications; I10 Essential (primary) hypertension; I25.10 Atherosclerotic heart disease of native coronary artery without angina pectoris; I25.2 Old myocardial infarction; Z86.73 Personal history of transient ischemic attack (TIA), and cerebral infarction without residual deficits

== ENCOUNTER 2018-12-22 00:13 | Observation (INO) | payer MEDICARE, MEDICAID ==
[~2018-12-22] VITALS: Ht 162.6 cm; Wt 85.0 kg
[~2018-12-22 00:13] MED LIST changes: +ZOFRAN4 M1 PO
--- NOTE | 2018-12-22 00:18 | NUR ---
PATIENT AMBULATORY TO ROOM 9. UNDRESSED INTO A GOWN. TRIAGE COMPLETED AT BEDSIDE. AWAITING MD BARROW.
[2018-12-22 01:05] LABS: HEMATOCRIT 28.9 % (39.0-50.0); HEMOGLOBIN 9.1 g/dl (14.0-18.0); IMMATURE GRANULOCYTES 0.4 % (0.0-5.0); MEAN CELL VOLUME 97.6 fL CALC (80.0-100.0); MEAN CORPUSCULAR HGB 30.7 pG CALC (26.0-32.0); MEAN CORPUSCULAR HGB CONC 31.5 g/L CALC (32.0-36.0); NEUT# 6.59 thou/uL (1.82-7.42); RED BLOOD COUNT 2.96 mill/uL (4.70-6.10); RED CELL DISTRI WIDTH 15.3 % (11.5-15.5)
--- NOTE | 2018-12-22 01:15 | NUR ---
ZOSYN INFUSING NO REACTION NOTED. WENT TO GET A CUP OF COFFEE.
[2018-12-22 01:19] LABS: BILIRUBIN, TOTAL 0.7 mg/dL (0.0-1.4); POTASSIUM 5.1 mmol/l (3.5-5.1); TOTAL PROTEIN 7.5 g/dL (6.3-8.2)
[2018-12-22 01:31] LABS: CREATININE 8.9 mg/dL (0.7-1.3)
[2018-12-22] MEDS ORDERED: CATAPRES0.1 MG PO (02:31)
--- NOTE | 2018-12-22 02:56 | NUR ---
REPORT GIVEN TO JO BENDER
--- NOTE | 2018-12-22 03:00 | NUR ---
PT TO BATHROOM. CLARIFIED DR WANG WANTS STOOL SENT SINCE DONE DURING EARLIER VISIT.
--- NOTE | 2018-12-22 03:15 | NUR ---
Admission Note Report Given to: JO BENDER Transported by: Wheelchair X Stretcher Transported with: X Nurse Transporter X Patent IV O2 X Inside Sales Executive
[2018-12-22 03:30] VITALS: BP 136/73
[2018-12-22 03:44] LABS: URINE BILIRUBIN - DIPSTICK NEGATIVE (NEGATIVE); URINE BLOOD DIPSTICK TRACE-LYSED (NEGATIVE); URINE COLOR YELLOW; URINE GLUCOSE - DIPSTICK 100 mg/dL (NEGATIVE); URINE KETONE NEGATIVE (NEGATIVE); URINE LEUK ESTERASE NEGATIVE (NEGATIVE); URINE NITRITE - DIPSTICK NEGATIVE (Negative); URINE PH 6.5 (4.5-8.0); URINE PROTEIN - DIPSTICK >=300 mg/dL (NEG-TRACE); URINE UROBILINOGEN - DIPSTICK 0.2 E.U./dL (0.2)
[2018-12-22 03:52] LABS: URINE BACTERIA FEW hpf; URINE HYALINE CAST FEW lpf (NONE-RARE); URINE MUCUS FEW hpf (NONE-FEW); URINE SQUAMOUS EPITHELIAL CELL MODERATE EPI/hpf (0-FEW)
[2018-12-22 04:21] LABS: C. DIFFICILE TOXIN A&B NEGATIVE (NEGATIVE)
--- NOTE | 2018-12-22 06:13 | NUR ---
PHONE CALL TO [facility] HERE IN [place] AND SPOKE WITH SIDDHARTHA TO LET THEM KNOW THAT MR. CALDERON HAS BEEN ADMITTED TO [facility] AND WILL NOT MAKE IT TO HIS APPT THIS MORNING FOR SCHEDULED H/D. SALINE BOLUS IS FINISHED AND SALINE LOCK FLUSHED TO THE RIGHT AC. PATIENT WITH NO COMPLAINTS AT THIS TIME. SAFETY PRECAUTIONS REINFORCED. CALL LIGHT IN REACH. WILL CONT TO MONITOR.
--- NOTE | 2018-12-22 07:48 | NUR ---
SHIFT CHANGE REPORT, PT AWAKE ALERT AND ORIENTED, DENIES DISCOMFORT, ALL NEEDS ADDRESSED, CALL VENEGAS IN REACH.
[2018-12-22 08:18] VITALS: BP 141/69
--- NOTE | 2018-12-22 09:49 | NUR ---
DR CARMONA REQUESTED TO CONSULT [facility] TO SCHEDULE DIALYSIS FOR TOMORROW, NURSE SIDDHARTHA CONTACTED VIA PHONE AND RESCHEDUDLED FOR 12/23/18 @ 1030. DR CARMONA NOTIFIED OF RESCHEDULED TIME. PT C/O HEADACHE, DR CARMONA NOTIFIED AND GAVE ORDERS.
--- NOTE | 2018-12-22 12:08 | NUR ---
RESTING IN BED AFTER CONSUMING MEAL AT THIS TIME, REPORTE HEADACHE HAS BEEN RELIEVED, ALL NEEDS MET/ADDRESSED, CALL VENEGAS IN REACH.
[2018-12-22 15:10] VITALS: BP 111/56
--- NOTE | 2018-12-22 17:45 | NUR ---
PT RESTING IN BED, SPOUSE REPORTED PT HAS BEEN HAVING DIARRHEA ALL DAY AND STATED THEY TOLD DR CARMONA, I CALLED DR CARMONA TO REPORT COMPLAIN AND HE ASKED WHY HE WAS NOT TOLD, HE GAVE ORDERS WHICH WERE EXECUTED.
[2018-12-22 19:00] VITALS: BP 137/71
--- NOTE | 2018-12-22 20:00 | NUR ---
PATIENT RESTING IN BED AT THIS TIME-AWAKE ALERT AND ORIENTEDX3. PATIENT STATES THAT HE CONT TO HAVE DIARRHEA-MEDICATED WITH LOMOTIL ORDERED. PATIENT WITH IV SITE TO RIGHT AC-SITE APPEARS HEALTHY AT THIS TIME. AV FISTULA TO LEFT UPPER ARM FOR H/D. SAFETY PRECAUTIONS REINFORCED. CALL LIGHT IN REACH. WILL CONT TO MONITOR.
[2018-12-23] VITALS: BP 143/74
--- NOTE | 2018-12-23 00:40 | NUR ---
PATIENT C/O NAUSEA-MEDICATED WITH MYLANTA 30CC ORDERED FOR NAUSEA/INDIGESTION. CALL LIGHT IN REACH. WILL CONT TO MONITOR.
[2018-12-23 04:00] VITALS: BP 96/55
--- NOTE | 2018-12-23 04:14 | NUR ---
APPEARS SLEEPING AT THIS TIME WITH EYES CLOSED. RESP EVEN AND UNLABORED. CALL LIGHT IN REACH. WILL CONT TO MONITOR.
--- NOTE | 2018-12-23 06:38 | NUR ---
PATIENT STATES THAT HE CONT TO HAVE DIARRHEA-MEDICATED WITH LOMOTIL TABS 2 ORDERED FOR DIARRHEA, SITTING UP IN RECLINER. CALL LIGHT IN REACH. WILL CONT TO MONITOR.
[2018-12-23] MEDS ORDERED: IMODIUM2 MG PO (08:21)
[2018-12-23] MEDS ORDERED: PROBIOTIC250 MG PO (08:21)
[2018-12-23 08:28] VITALS: BP 125/56
[2018-12-23 08:31] VITALS: BP 125/56
--- NOTE | 2018-12-23 08:40 | NUR ---
PT IS SITTING IN RECLINER. ASSESSMENT DONE. PT IS A&O X3. PT DENIES PAIN AT THIS TIME. TESHA FISTULA +. TELE IN PLACE. PT STATED HIS APPT IS AT 1030 TODAY. CALL LIGHT IN REACH.
--- NOTE | 2018-12-23 09:26 | NUR ---
SIDDHARTHA FROM LAB STATED THAT THE TEST FOR STOOL WAS REPEATED ORDER AND NOT NEEDED.Discharge instructions given. Patient verbalizes understanding of same. Discharged in stable condition via Wheelchair to Home with spouse. All belongings sent with pt.
== END 2018-12-23 09:26 | disposition home or self-care (01) ==
LOC: ED 00:13 → ED-I 02:10 → ED 02:30 → MS2 02:31
PROVIDERS: Family Medicine; ADMIT Internal Medicine Geriatric Medicine; ATTEND Internal Medicine Geriatric Medicine
DX: R50.9 Fever, unspecified (principal); R19.7 Diarrhea, unspecified; E86.0 Dehydration; I12.0 Hypertensive chronic kidney disease with stage 5 chronic kidney disease or end stage renal disease; E11.22 Type 2 diabetes mellitus with diabetic chronic kidney disease; N18.6 End stage renal disease; I25.10 Atherosclerotic heart disease of native coronary artery without angina pectoris; F03.90 Unspecified dementia, unspecified severity, without behavioral disturbance, psychotic disturbance, mood disturbance, and anxiety; R11.2 Nausea with vomiting, unspecified; R53.1 Weakness; Z86.73 Personal history of transient ischemic attack (TIA), and cerebral infarction without residual deficits; Z99.2 Dependence on renal dialysis; Z85.528 Personal history of other malignant neoplasm of kidney; Z95.5 Presence of coronary angioplasty implant and graft; Z90.5 Acquired absence of kidney; R07.9 Chest pain, unspecified

== ENCOUNTER 2019-06-01 18:30 | Inpatient (IN) | payer MEDICARE ==
[~2019-06-01] VITALS: Ht 162.6 cm; Wt 84.5 kg
[~2019-06-01 18:30] MED LIST changes: +CATAPRES0.1 MG PO; +IMODIUM2 MG PO; +PROBIOTIC250 MG PO
[2019-06-01 19:19] LABS: HEMOGLOBIN 11.3 g/dl (14.0-18.0); IMMATURE GRANULOCYTES 0.2 % (0.0-5.0); MEAN CELL VOLUME 96.2 fL CALC (80.0-100.0); MEAN CORPUSCULAR HGB CONC 32.3 g/L CALC (32.0-36.0); NEUT# 6.72 thou/uL (1.82-7.42); RED BLOOD COUNT 3.64 mill/uL (4.70-6.10); RED CELL DISTRI WIDTH 16.8 % (11.5-15.5)
[2019-06-01 19:34] LABS: ALBUMIN 4.2 g/dL (3.2-5.0); BILIRUBIN, TOTAL 0.9 mg/dL (0.0-1.4); TOTAL PROTEIN 7.9 g/dL (6.3-8.2)
[2019-06-01 19:36] LABS: CREATININE 4.7 mg/dL (0.7-1.3); POTASSIUM 4.2 mmol/l (3.5-5.1)
[2019-06-01 21:03] LABS: AMYLASE 45 u/l (30-110); LIPASE 273 u/l (23-300)
[2019-06-01 21:18] LABS: URINE BILIRUBIN - DIPSTICK NEGATIVE (NEGATIVE); URINE BLOOD DIPSTICK TRACE-INTACT (NEGATIVE); URINE COLOR YELLOW; URINE GLUCOSE - DIPSTICK 250 mg/dL (NEGATIVE); URINE KETONE NEGATIVE (NEGATIVE); URINE LEUK ESTERASE NEGATIVE (NEGATIVE); URINE NITRITE - DIPSTICK NEGATIVE (Negative); URINE PH 7.5 (4.5-8.0); URINE PROTEIN - DIPSTICK >=300 mg/dL (NEG-TRACE); URINE SPECIFIC GRAVITY 1.015; URINE UROBILINOGEN - DIPSTICK 0.2 E.U./dL (0.2)
[2019-06-01 21:38] LABS: URINE SQUAMOUS EPITHELIAL CELL FEW EPI/hpf (0-FEW)
[2019-06-02] VITALS (12 sets, daily range): BP systolic 123–175; BP diastolic 66–101
[2019-06-02] MEDS ORDERED: LEVEMIR100 UNIT/M SC ×2 (03:06→03:07)
[2019-06-02 06:07] LABS: HEMATOCRIT 33.9 % (39.0-50.0); HEMOGLOBIN 10.7 g/dl (14.0-18.0); MEAN CELL VOLUME 96.6 fL CALC (80.0-100.0); MEAN CORPUSCULAR HGB 30.5 pG CALC (26.0-32.0); MEAN CORPUSCULAR HGB CONC 31.6 g/L CALC (32.0-36.0); RED BLOOD COUNT 3.51 mill/uL (4.70-6.10); RED CELL DISTRI WIDTH 16.9 % (11.5-15.5)
[2019-06-02 06:22] LABS: POTASSIUM 4.1 mmol/l (3.5-5.1)
[2019-06-02 06:25] LABS: CREATININE 5.4 mg/dL (0.7-1.3)
[2019-06-03 03:30] VITALS: BP 124/70
[2019-06-03 05:28] LABS: POTASSIUM 4.9 mmol/l (3.5-5.1)
[2019-06-03 05:33] LABS: CREATININE 6.7 mg/dL (0.7-1.3)
[2019-06-03 08:00] VITALS: BP 139/70
[2019-06-03] MEDS ORDERED: METRONIDAZOL500 MG PO (08:33)
[2019-06-03] MEDS ORDERED: CIPROFLOXACN500 MG PO (08:33)
[2019-06-03 09:25] VITALS: BP 139/70
== END 2019-06-03 10:00 | disposition home or self-care (01) | DRG 391 ==
LOC: ED 18:30 → ED-I 23:23 → ED 06-02 → ICU 06-02 00:01 → MS2 06-02 11:31 → ICU 06-02 11:31 → MS2 06-02 16:26
PROVIDERS: Emergency Medicine; ADMIT Internal Medicine; ATTEND Internal Medicine
DX: K57.32 Diverticulitis of large intestine without perforation or abscess without bleeding (principal); N18.6 End stage renal disease; I12.0 Hypertensive chronic kidney disease with stage 5 chronic kidney disease or end stage renal disease; E11.22 Type 2 diabetes mellitus with diabetic chronic kidney disease; R07.89 Other chest pain; E78.5 Hyperlipidemia, unspecified; F03.90 Unspecified dementia, unspecified severity, without behavioral disturbance, psychotic disturbance, mood disturbance, and anxiety; I25.10 Atherosclerotic heart disease of native coronary artery without angina pectoris; I25.2 Old myocardial infarction; Z85.528 Personal history of other malignant neoplasm of kidney; Z90.5 Acquired absence of kidney; Z79.4 Long term (current) use of insulin; Z95.5 Presence of coronary angioplasty implant and graft; Z99.2 Dependence on renal dialysis; Z86.73 Personal history of transient ischemic attack (TIA), and cerebral infarction without residual deficits
CPT/HCPCS: S0164

== ENCOUNTER 2019-08-02 22:45 | Emergency (ER) | payer MEDICARE ==
[~2019-08-02] VITALS: Ht 162.6 cm; Wt 100.0 kg
[~2019-08-02 22:45] MED LIST changes: +LEVEMIR100 UNIT/M SC
[2019-08-02 23:24] LABS: HEMOGLOBIN 11.2 g/dl (14.0-18.0); IMMATURE GRANULOCYTES 0.2 % (0.0-5.0); MEAN CELL VOLUME 97.8 fL CALC (80.0-100.0); MEAN CORPUSCULAR HGB 30.4 pG CALC (26.0-32.0); MEAN CORPUSCULAR HGB CONC 31.1 g/L CALC (32.0-36.0); NEUT# 8.39 thou/uL (1.82-7.42); RED BLOOD COUNT 3.68 mill/uL (4.70-6.10); RED CELL DISTRI WIDTH 15.7 % (11.5-15.5)
[2019-08-02 23:30] LABS: ALBUMIN 4.1 g/dL (3.2-5.0); BILIRUBIN, TOTAL 0.8 mg/dL (0.0-1.4); POTASSIUM 4.8 mmol/l (3.5-5.1); TOTAL PROTEIN 7.9 g/dL (6.3-8.2)
[2019-08-02 23:34] LABS: CREATININE 8.1 mg/dL (0.7-1.3)
[2019-08-03 04:10] VITALS: BP 146/65
== END 2019-08-03 04:55 ==
LOC: ED 22:45
PROVIDERS: Family Medicine
DX: R07.9 Chest pain, unspecified (principal); E11.22 Type 2 diabetes mellitus with diabetic chronic kidney disease; I12.0 Hypertensive chronic kidney disease with stage 5 chronic kidney disease or end stage renal disease; N18.6 End stage renal disease; I25.10 Atherosclerotic heart disease of native coronary artery without angina pectoris; I25.2 Old myocardial infarction; F03.90 Unspecified dementia, unspecified severity, without behavioral disturbance, psychotic disturbance, mood disturbance, and anxiety; Z95.5 Presence of coronary angioplasty implant and graft; Z99.2 Dependence on renal dialysis; Z79.4 Long term (current) use of insulin; Z86.73 Personal history of transient ischemic attack (TIA), and cerebral infarction without residual deficits; Z85.528 Personal history of other malignant neoplasm of kidney

== ENCOUNTER 2019-08-06 16:05 | Emergency (ER) | payer MEDICARE ==
[~2019-08-06] VITALS: Ht 162.6 cm; Wt 79.1 kg
[2019-08-06] MEDS ORDERED: LASIX 20 MG TAB20 MG PO (16:43)
[2019-08-06] MEDS ORDERED: XARELTO2.5 MG PO (16:45)
[2019-08-06 17:42] LABS: IMMATURE GRANULOCYTES 0.2 % (0.0-5.0); MEAN CELL VOLUME 94.7 fL CALC (80.0-100.0); MEAN CORPUSCULAR HGB 30.6 pG CALC (26.0-32.0); MEAN CORPUSCULAR HGB CONC 32.4 g/L CALC (32.0-36.0); NEUT# 6.07 thou/uL (1.82-7.42); RED BLOOD COUNT 3.59 mill/uL (4.70-6.10); RED CELL DISTRI WIDTH 15.5 % (11.5-15.5)
[2019-08-06 18:00] LABS: POTASSIUM 4.4 mmol/l (3.5-5.1); TOTAL PROTEIN 7.7 g/dL (6.3-8.2)
[2019-08-06 18:02] LABS: CREATININE 6.7 mg/dL (0.7-1.3)
[2019-08-06] MEDS ORDERED: Levaquin PO ×2 (18:40)
[2019-08-06 20:42] VITALS: BP 143/68
== END 2019-08-06 20:35 | disposition home or self-care (01) ==
LOC: ED 16:05
PROVIDERS: Family Medicine
DX: J18.9 Pneumonia, unspecified organism (principal); E11.22 Type 2 diabetes mellitus with diabetic chronic kidney disease; I12.0 Hypertensive chronic kidney disease with stage 5 chronic kidney disease or end stage renal disease; N18.6 End stage renal disease; I25.10 Atherosclerotic heart disease of native coronary artery without angina pectoris; F03.90 Unspecified dementia, unspecified severity, without behavioral disturbance, psychotic disturbance, mood disturbance, and anxiety; I25.2 Old myocardial infarction; Z85.50 Personal history of malignant neoplasm of unspecified urinary tract organ; Z99.2 Dependence on renal dialysis; Z79.4 Long term (current) use of insulin; Z95.5 Presence of coronary angioplasty implant and graft

== ENCOUNTER 2019-09-02 23:25 | Observation (INO) | payer MEDICARE ==
[~2019-09-02] VITALS: Ht 162.6 cm; Wt 80.0 kg
[~2019-09-02 23:25] MED LIST changes: +Levaquin PO; +XARELTO2.5 MG PO
--- NOTE | 2019-09-02 23:27 | NUR ---
AMBULATED TO ROOM 13 GUARDING LLQ
[2019-09-03 00:04] LABS: HEMOGLOBIN 10.6 g/dl (14.0-18.0); IMMATURE GRANULOCYTES 0.4 % (0.0-5.0); MEAN CELL VOLUME 99.7 fL CALC (80.0-100.0); MEAN CORPUSCULAR HGB CONC 32.1 g/L CALC (32.0-36.0); NEUT# 6.12 thou/uL (1.82-7.42); RED BLOOD COUNT 3.31 mill/uL (4.70-6.10); RED CELL DISTRI WIDTH 16.3 % (11.5-15.5)
[2019-09-03] MEDS ORDERED: CIPROFLOXACIN500 M1 PO (00:10)
[2019-09-03] MEDS ORDERED: METRONIDAZOL500 MG PO (00:10)
[2019-09-03 00:19] LABS: ALBUMIN 4.3 g/dL (3.2-5.0); BILIRUBIN, TOTAL 0.7 mg/dL (0.0-1.4); POTASSIUM 4.5 mmol/l (3.5-5.1); TOTAL PROTEIN 8.1 g/dL (6.3-8.2)
[2019-09-03 00:20] LABS: CREATININE 4.4 mg/dL (0.7-1.3)
--- NOTE | 2019-09-03 00:41 | NUR ---
REMEDCIATED FOR PAIN AT 7 ON
--- NOTE | 2019-09-03 01:10 | NUR ---
PT TRANSFERRED TO ER RM[facility]
--- NOTE | 2019-09-03 01:59 | NUR ---
[id number] FOR NAUSEA AND DRY HEAVES
[2019-09-03 02:00] VITALS: BP 177/83
[2019-09-03 04:37] VITALS: BP 165/81
--- NOTE | 2019-09-03 04:39 | NUR ---
PT MEDICATED FOR DRY HEAVES AND LO ABD CRAMPS RATED AT 3 ON 0-10 SCALE
[2019-09-03 06:25] LABS: HEMATOCRIT 31.6 % (39.0-50.0); IMMATURE GRANULOCYTES 0.6 % (0.0-5.0); MEAN CELL VOLUME 101.3 fL CALC (80.0-100.0); MEAN CORPUSCULAR HGB 32.1 pG CALC (26.0-32.0); MEAN CORPUSCULAR HGB CONC 31.6 g/L CALC (32.0-36.0); NEUT# 8.36 thou/uL (1.82-7.42); RED BLOOD COUNT 3.12 mill/uL (4.70-6.10); RED CELL DISTRI WIDTH 16.4 % (11.5-15.5)
[2019-09-03 06:39] LABS: CREATININE 4.6 mg/dL (0.7-1.3); POTASSIUM 4.9 mmol/l (3.5-5.1)
--- NOTE | 2019-09-03 06:45 | NUR ---
PT TRANSPORTED TO NE RM 289 IN STABLE CONDITION
[2019-09-03 07:00] VITALS: BP 163/78
[2019-09-03 15:23] VITALS: BP 151/80
--- NOTE | 2019-09-03 16:01 | NUR ---
Pt in bed resting with eyes closed. No s/s of distress. no s/s of SOB. No c/o pain. pt is arousable. Tolerated meal with no nausea or vomitting. at bedside. Continues on ABT with no s/s of adverse reaction. Call leon within reach. bed in lowest position. IV in right a/c is patent with matienece fluids running at 50 ml/hr.
--- NOTE | 2019-09-03 19:53 | NUR ---
PT SITTING IN BED. A&O X3. NO DISTRESS NOTED. FAMILY AT BEDSIDE. NO NEEDS AT THIS TIME. EXPRESSES CONCERN ABOUT THE PT REC DIALYSIS. EXPLAINED THAT IT WOULD BE EASIER FOR HER TO TAKE HER AT 0600 TO [facility] AND THEN COME BACK INSTEAD OF WAITING FOR A BED IN [place]. EXPLAINED TO THE THAT AN AMA FORM WOULD HAVE TO BE FILLED OUT AND THE PT WOULD HAVE TO BE BROUGHT BACK INTO THE ER TO BE RE-EVALUTATED AND RE-ADMITTED. SHE VERBALIZED UNDERSTANDING. DISCUSSED POC. ASSESSMENT COMPLETED. CALL LIGHT IN REACH, CONTINUE TO MONITOR.
[2019-09-03 20:59] VITALS: BP 146/83
--- NOTE | 2019-09-04 03:55 | NUR ---
PTS TO RETURN AFTER GOING TO [facility]. PT REQUESTED TO HAVE BLOOD SUGAR CHECKED. BS 104.
--- NOTE | 2019-09-04 05:00 | NUR ---
PER PT, HE IS WAITING ON THE PHONE CALL FROM HIS TO SEE IF BO STILL HAS HIS SPOT. TO CALL BACK AT 0530
[2019-09-04 05:07] VITALS: BP 166/87
--- NOTE | 2019-09-04 05:35 | NUR ---
PER PT, HIS HAS NOT CALLED HIM BACK YET TO UPDATE HIM
[2019-09-04 05:45] LABS: HEMOGLOBIN 9.5 g/dl (14.0-18.0); IMMATURE GRANULOCYTES 0.4 % (0.0-5.0); MEAN CELL VOLUME 102.3 fL CALC (80.0-100.0); MEAN CORPUSCULAR HGB 31.4 pG CALC (26.0-32.0); MEAN CORPUSCULAR HGB CONC 30.6 g/L CALC (32.0-36.0); NEUT# 5.93 thou/uL (1.82-7.42); RED BLOOD COUNT 3.03 mill/uL (4.70-6.10); RED CELL DISTRI WIDTH 16.5 % (11.5-15.5)
[2019-09-04 06:09] LABS: MAGNESIUM 2.2 mg/dL (1.6-2.3)
[2019-09-04 07:35] VITALS: BP 140/60
--- NOTE | 2019-09-04 07:35 | NUR ---
AWAKE ON ROUNDS. RESP NON-LABORED. LUNGS CLEAR. ABD SOFTLY DISTENDED WITH ACTIVE BOWEL SOUNDS. AV FISTULA IN LARM WITH PAPABLE THRILL AND AUDIBLE BRUIT. IV IN RAC, SITE BENIGN, 1/2 NS INFUSING AT 50 ML/HR. PATIENT STATES HIS DIAYSIS APPT HAS BEEN RESCHEDULED TO 1030 THIS MORNING.
--- NOTE | 2019-09-04 09:52 | NUR ---
Discharge instructions given. Patient verbalizes understanding of same. Discharged in stable condition via Wheelchair to Home with spouse. All belongings sent with pt.
== END 2019-09-04 09:52 | disposition home or self-care (01) ==
LOC: ED 23:25 → ED-I 09-03 00:20 → ED 09-03 00:38 → ED-I 09-03 00:39 → MS2 09-03 06:46
PROVIDERS: Nurse Practitioner Family; ADMIT Internal Medicine; ATTEND Internal Medicine
DX: K57.32 Diverticulitis of large intestine without perforation or abscess without bleeding (principal); I12.0 Hypertensive chronic kidney disease with stage 5 chronic kidney disease or end stage renal disease; E11.22 Type 2 diabetes mellitus with diabetic chronic kidney disease; N18.6 End stage renal disease; E78.5 Hyperlipidemia, unspecified; F03.90 Unspecified dementia, unspecified severity, without behavioral disturbance, psychotic disturbance, mood disturbance, and anxiety; I25.10 Atherosclerotic heart disease of native coronary artery without angina pectoris; I25.2 Old myocardial infarction; Z85.528 Personal history of other malignant neoplasm of kidney; Z90.5 Acquired absence of kidney; Z95.5 Presence of coronary angioplasty implant and graft; Z79.4 Long term (current) use of insulin; Z86.73 Personal history of transient ischemic attack (TIA), and cerebral infarction without residual deficits; Z99.2 Dependence on renal dialysis; R10.9 Unspecified abdominal pain
CPT/HCPCS: G0378; S0164

== ENCOUNTER 2020-10-07 13:52 | Emergency (ER) | payer MEDICARE ==
[~2020-10-07] VITALS: Ht 162.6 cm; Wt 81.8 kg
[~2020-10-07 13:52] MED LIST changes: +CIPROFLOXACIN500 M1 PO
[2020-10-07 15:07] LABS: HEMATOCRIT 32.4 % (39.0-50.0); HEMOGLOBIN 10.6 g/dl (14.0-18.0); IMMATURE GRANULOCYTES 0.2 % (0.0-5.0); MEAN CELL VOLUME 96.4 fL CALC (80.0-100.0); MEAN CORPUSCULAR HGB 31.5 pG CALC (26.0-32.0); MEAN CORPUSCULAR HGB CONC 32.7 g/dL CAL (32.0-36.0); NEUT# 4.61 thou/uL (1.82-7.42); RED BLOOD COUNT 3.36 mill/uL (4.70-6.10); RED CELL DISTRI WIDTH 14.2 % (11.5-15.5)
[2020-10-07 15:23] LABS: PROTHROMBIN TIME 10.4 SECONDS (9.0-12.5)
[2020-10-07 15:24] LABS: BILIRUBIN, TOTAL 0.5 mg/dL (0.0-1.4); MAGNESIUM 1.8 mg/dL (1.6-2.3); TOTAL PROTEIN 7.7 g/dL (6.3-8.2)
[2020-10-07 15:26] LABS: D-DIMER 0.31 mg/L (0.19-0.60)
[2020-10-07 15:46] LABS: CREATININE 4.2 mg/dL (0.7-1.3); POTASSIUM 3.6 mmol/l (3.5-5.1)
[2020-10-07] MEDS ORDERED: DECADRON2 MG PO (16:36)
[2020-10-07] MEDS ORDERED: ZPAK PO (16:36)
[2020-10-07 16:45] VITALS: BP 145/69
--- NOTE | 2020-10-08 08:19 | NUR ---
RECD CONSULT FOR [facility]. PT IS A CANDIDATE. CALLED PT ASIF YANG IN [facility], SATURDAY EARLY AM 730-8AM IS BEST FOR SCHEDULING.
== END 2020-10-07 17:00 | disposition home or self-care (01) ==
LOC: ED 13:52
DX: U07.1 COVID-19 (principal); I12.0 Hypertensive chronic kidney disease with stage 5 chronic kidney disease or end stage renal disease; E11.22 Type 2 diabetes mellitus with diabetic chronic kidney disease; N18.6 End stage renal disease; Z99.2 Dependence on renal dialysis; I25.10 Atherosclerotic heart disease of native coronary artery without angina pectoris; I48.91 Unspecified atrial fibrillation; I25.2 Old myocardial infarction; Z86.73 Personal history of transient ischemic attack (TIA), and cerebral infarction without residual deficits; Z79.4 Long term (current) use of insulin

== ENCOUNTER 2020-10-10 05:38 | Emergency (ER) | payer MEDICARE ==
[~2020-10-10] VITALS: Ht 162.6 cm; Wt 83.0 kg
[~2020-10-10 05:38] MED LIST changes: +DECADRON2 MG PO
[2020-10-10 06:12] LABS: HEMATOCRIT 30.4 % (39.0-50.0); HEMOGLOBIN 9.9 g/dl (14.0-18.0); IMMATURE GRANULOCYTES 0.4 % (0.0-5.0); MEAN CORPUSCULAR HGB 30.9 pG CALC (26.0-32.0); MEAN CORPUSCULAR HGB CONC 32.6 g/dL CAL (32.0-36.0); NEUT# 10.4 thou/uL (1.82-7.42); RED BLOOD COUNT 3.2 mill/uL (4.70-6.10); RED CELL DISTRI WIDTH 14.4 % (11.5-15.5)
[2020-10-10 06:25] LABS: ALBUMIN 3.6 g/dL (3.2-5.0)
[2020-10-10 06:31] LABS: BILIRUBIN, TOTAL 0.8 mg/dL (0.0-1.4); CREATININE 10.1 mg/dL (0.7-1.3); POTASSIUM 5.1 mmol/l (3.5-5.1)
[2020-10-10 09:25] VITALS: BP 114/56
== END 2020-10-10 09:25 ==
LOC: ED 05:38
PROVIDERS: Family Medicine
DX: U07.1 COVID-19 (principal); J12.82 Pneumonia due to coronavirus disease 2019; R53.83 Other fatigue; I12.0 Hypertensive chronic kidney disease with stage 5 chronic kidney disease or end stage renal disease; E11.22 Type 2 diabetes mellitus with diabetic chronic kidney disease; N18.6 End stage renal disease; K21.9 Gastro-esophageal reflux disease without esophagitis; E87.1 Hypo-osmolality and hyponatremia; I25.2 Old myocardial infarction; Z99.2 Dependence on renal dialysis; Z95.5 Presence of coronary angioplasty implant and graft; Z79.01 Long term (current) use of anticoagulants; Z79.4 Long term (current) use of insulin; Z86.73 Personal history of transient ischemic attack (TIA), and cerebral infarction without residual deficits

== ENCOUNTER 2021-01-12 03:19 | Observation (INO) | payer MEDICARE ==
[~2021-01-12] VITALS: Ht 162.6 cm; Wt 83.0 kg
--- NOTE | 2021-01-12 03:20 | NUR ---
PT AMBULATORY FROM WR TO ROOM 14. REFUSED W/C. C/O NUMBNESS, NO PAIN TO RIGHT ARM FROM MID BICEP TO TIPS OF 4TH AND 5TH FINGERS. 1+ RADIA PULSE. FINGERS WARM.
[2021-01-12 03:55] LABS: HEMOGLOBIN 10.5 g/dl (14.0-18.0); IMMATURE GRANULOCYTES 0.2 % (0.0-5.0); MEAN CELL VOLUME 97.1 fL CALC (80.0-100.0); MEAN CORPUSCULAR HGB 30.9 pG CALC (26.0-32.0); MEAN CORPUSCULAR HGB CONC 31.8 g/dL CAL (32.0-36.0); NEUT# 4.59 thou/uL (1.82-7.42); RED BLOOD COUNT 3.4 mill/uL (4.70-6.10); RED CELL DISTRI WIDTH 14.2 % (11.5-15.5)
[2021-01-12 04:13] LABS: ALBUMIN 3.7 g/dL (3.2-5.0); BILIRUBIN, TOTAL 0.6 mg/dL (0.0-1.4); POTASSIUM 4.7 mmol/l (3.5-5.1); TOTAL PROTEIN 7.1 g/dL (6.3-8.2)
[2021-01-12 04:16] LABS: ACT PARTIAL THROMBO TIME 28.3 SECONDS (20.0-32.5); INTERNATIONAL NORMALIZED RATIO 1.1 RATIO (0.7-1.3); PROTHROMBIN TIME 11.6 SECONDS (9.0-12.5)
[2021-01-12 04:23] LABS: CREATININE 5.5 mg/dL (0.7-1.3)
--- NOTE | 2021-01-12 04:42 | NUR ---
RESTING COMFORTABLY AWAITING TEST RESULTS
[2021-01-12] MEDS ORDERED: VOLTAREN75 MG PO (05:35)
--- NOTE | 2021-01-12 05:40 | NUR ---
PT C/O FEELING ANXIOUS. PT TO BE ADMITTED AFTER MD RE-EXAMINED PT.
--- NOTE | 2021-01-12 06:30 | NUR ---
SWAB SENT TO LAB. MEDICATED.
--- NOTE | 2021-01-12 06:55 | NUR ---
REPORT RECEIVED FROM EVELYN OSORIO
--- NOTE | 2021-01-12 08:46 | NUR ---
REPORT CALLED TO JAHAIRA CAGLE.
--- NOTE | 2021-01-12 09:18 | NUR ---
PT ARRIVED VIA WC WITH STAFF.
--- NOTE | 2021-01-12 09:36 | NUR ---
ASSESSMENT IS COMPLETED: IV SITE IS FREE FROM REDNESS OR EDEMA, HR IS REG,PULSES ARE STRONG X4, ABD IS SOFT WITH ACTIVE BS. BREATH SOUNDS ARE CLEAR, BILATERALLY, NO C/O SOB. LEFT ARM HAS A SHUNT IN PLACE FOR THE DIALYSIS. CONTIUES TO C/O NUMBNESS ON R ARM FROM SHOULDER TO THE LAST 2 DIGITS ON HIS HAND. CONTINUE TO OSBERVE AND MONITOR
[2021-01-12 09:46] VITALS: BP 150/41
--- NOTE | 2021-01-12 12:00 | NUR ---
PT IS RELAXING IN BED WITH NO DISTRESS NOTED IV SITE IS FREE FROM REDNESS OR EDEMA.
--- NOTE | 2021-01-12 13:15 | NUR ---
PT TRANSPORTED TO MRI VIA WC WITH STAFF. RETURNED AT 1416 VIA WC WITH STAFF. N
[2021-01-12 15:06] VITALS: BP 139/40
--- NOTE | 2021-01-12 16:00 | NUR ---
INFORMED PT OF PLAN FOR DISCHARGE. WILL GIVE INSULIN FOR BS OF 502. LAB GUS WAS 490 PER RICCI IN LAB.INFORMED CASEY PINON.
[2021-01-12] MEDS ORDERED: METHOCARBAMOL500 MG PO (16:03)
[2021-01-12] MEDS ORDERED: PREDNISONE10 MG PO (16:04)
--- NOTE | 2021-01-12 16:32 | NUR ---
INFORMED CASEY PINON RE: BS OF 502 LAB COMING TO DRAW A STAT GLUCOSE.
--- NOTE | 2021-01-12 18:00 | NUR ---
IV SITE REMOVED CATHETER INTACT. NO REDNESS OR EDEMA. DISCHARGE INSTRUCTIOMS GIVEN AND VERBALIZED UNDERSTANDING. FAMILY WILL BRING CLOTHES. CONTINUE TO OBSERVE AND MONITOR.
--- NOTE | 2021-01-12 18:25 | NUR ---
Discharge instructions given. Patient verbalizes understanding of same. Discharged in stable condition via Wheelchair to Home with family. All belongings sent with pt.
== END 2021-01-12 18:24 | disposition home or self-care (01) ==
LOC: ED 03:19 → ED-I 06:40 → ED 06:50 → MS2 06:51
PROVIDERS: Family Medicine; ADMIT Internal Medicine; ATTEND Internal Medicine
DX: M54.12 Radiculopathy, cervical region (principal); E11.22 Type 2 diabetes mellitus with diabetic chronic kidney disease; I12.0 Hypertensive chronic kidney disease with stage 5 chronic kidney disease or end stage renal disease; N18.6 End stage renal disease; K21.9 Gastro-esophageal reflux disease without esophagitis; D64.9 Anemia, unspecified; E78.5 Hyperlipidemia, unspecified; I25.10 Atherosclerotic heart disease of native coronary artery without angina pectoris; I25.2 Old myocardial infarction; Z99.2 Dependence on renal dialysis; Z95.5 Presence of coronary angioplasty implant and graft; Z79.4 Long term (current) use of insulin; Z90.5 Acquired absence of kidney; Z86.16 Personal history of COVID-19; Z86.73 Personal history of transient ischemic attack (TIA), and cerebral infarction without residual deficits; Z20.822 Contact with and (suspected) exposure to COVID-19
CPT/HCPCS: G0378; J1650

== ENCOUNTER 2021-03-01 13:43 | Observation (INO) | payer MEDICARE ==
[~2021-03-01] VITALS: Ht 162.6 cm; Wt 79.0 kg
[~2021-03-01 13:43] MED LIST changes: +METHOCARBAMOL500 MG PO; +PREDNISONE10 MG PO; +VOLTAREN75 MG PO
--- NOTE | 2021-03-01 13:49 | NUR ---
PT TO ROOM # 12 VIA W/C FOR BEDSIDE TRIAGE
--- NOTE | 2021-03-01 14:45 | NUR ---
PT RESTING AWAITING RESULTS
[2021-03-01 14:58] LABS: HEMATOCRIT 31.6 % (39.0-50.0); HEMOGLOBIN 10.4 g/dl (14.0-18.0); IMMATURE GRANULOCYTES 0.2 % (0.0-5.0); MEAN CORPUSCULAR HGB CONC 32.9 g/dL CAL (32.0-36.0); NEUT# 6.75 thou/uL (1.82-7.42); RED BLOOD COUNT 3.36 mill/uL (4.70-6.10); RED CELL DISTRI WIDTH 14.3 % (11.5-15.5)
[2021-03-01 15:11] LABS: ALBUMIN 3.8 g/dL (3.2-5.0); BILIRUBIN, TOTAL 0.4 mg/dL (0.0-1.4); POTASSIUM 4.2 mmol/l (3.5-5.1); TOTAL PROTEIN 7.3 g/dL (6.3-8.2)
[2021-03-01 15:22] LABS: CREATININE 4.4 mg/dL (0.7-1.3)
[2021-03-01] MEDS ORDERED: LOSARTAN POTASS25 MG PO (16:14)
[2021-03-01] MEDS ORDERED: PRILOSEC20 MG/CAP PO (16:14)
[2021-03-01] MEDS ORDERED: LEVEMIR100 UNIT SC (16:18)
[2021-03-01] MEDS ORDERED: NOVOLIN R100 UNIT/1 SC (16:19)
--- NOTE | 2021-03-01 16:25 | NUR ---
PT AOX3, VSS AND NAD. NO PAIN NOTED, BEING ADMITTED
--- NOTE | 2021-03-01 17:00 | NUR ---
TIFFANIE OSORIO TOOK REPORT ON PT, PT AOX3, VSS. WHEELCHAIR WITH PT AND ALL BELONGINGS TOOK UPSTAIRS
[2021-03-01 17:18] VITALS: BP 166/75
--- NOTE | 2021-03-01 17:18 | NUR ---
PT ARRIVED VIA WC ACCOMPANIED BY ED. A&O. NO DISTRESS NOTED. CLEAR BREATH SOUNDS UPON AUSCULTATION. ACTIVE BOWEL SOUNDS X4 QUADRANTS. BM REPORTED 02/28. [facility]ACT[facility] RN IN PLACE. IV HEALTHY AND PATENT. PT DENIES ANY CURRENT CP AT THIS TIME. PER PT HE WAS EXPERIENCING CP DURING/AFTER HIS DIALYSIS TREATMENT. FISTULA TO ANDRY IN PLACE. BRUIT HEARD UPON AUSCULTATION AND THRILL UPON PALPATION. RENE GLOVER OFFERED BUT REFUSED. PER PT HE WENT TO PA WITH FAMILY IN THE PAST 30 DAYS, DENIES ANY COVID S/S, COVID/FLU NEGATIVE AT THIS TIME. ORIENTED PT TO ROOM. ASSESSMENT COMPLETED. DISCUSSED POC. CALL LIGHT WITHIN REACH.
--- NOTE | 2021-03-01 18:30 | NUR ---
REPORT RECIVED FROM Harvey STATON RN, CARE ASSUMED AT THIS TIME.
[2021-03-01 19:00] VITALS: BP 153/62
--- NOTE | 2021-03-01 19:50 | NUR ---
PATIENT RESTING COMFORTABLY. PATIENT DENIES ANY PAIN, CHEST PAIN OR DISCOMFORT, NO SHORTNESS OF BREATH NOTED. PATIENT INSTRUCTED ON PROPER USE OF CALL LIGHT AND IMPORTANCE OF CALLING IF HE SHOULD NEED ASSISTANCE. PATIENT AGREES TO USE SAFETY MEASURES.
--- NOTE | 2021-03-01 20:05 | NUR ---
POINT OF CARE GLUCOSE 416, GLUCOSE PENDING PHARMACY VERIFICATION.
--- NOTE | 2021-03-01 21:45 | NUR ---
PATIENT MEDICATED AT THIS TIME. DENIES ANY PAIN AND OR NEED FOR PAIN MEDICATION. EDUCATED ON MEDICATIONS ADMINISTERED.
--- NOTE | 2021-03-01 22:25 | NUR ---
PT DECLINES SCHEDULED SLIDING SCALE INSULIN DOSE, ONLY WILLING TO TAKE LONG ACTING INSULIN. MEDICATION EDUCATION PROVIDED. PT VERBALIZES UNDERSTANDING AND CONTINUES TO DECLINE. SLIDING SCALE INSULIN OMITTED ON E-MAR PER PT'S REFUSAL. PER [facility], PT'S XARELTO DOSE NOT AVAILABLE TONIGHT. DR. FRANCE MADE AWARE.
[2021-03-01 22:54] VITALS: BP 153/76
--- NOTE | 2021-03-01 23:00 | NUR ---
PATIENT SLEEPING COMFORTABLY. WILL CON'T TO MONITOR
[2021-03-02 04:00] VITALS: BP 148/79
--- NOTE | 2021-03-02 05:35 | NUR ---
PATIENT SLEEPING. CALL LIGHT AND BED SIDE TABLE WITHIN REACH. PATIENT DENIES ANY ADDITIONAL ASSITANCE.
[2021-03-02 05:53] LABS: HEMATOCRIT 33.9 % (39.0-50.0); MEAN CELL VOLUME 93.9 fL CALC (80.0-100.0); MEAN CORPUSCULAR HGB 30.5 pG CALC (26.0-32.0); MEAN CORPUSCULAR HGB CONC 32.4 g/dL CAL (32.0-36.0); RED BLOOD COUNT 3.61 mill/uL (4.70-6.10); RED CELL DISTRI WIDTH 14.3 % (11.5-15.5)
[2021-03-02 06:05] LABS: CHOLESTEROL HDL RATIO 3.2 (<4.4 (CALC)); MAGNESIUM 2.1 mg/dL (1.6-2.3); POTASSIUM 4.8 mmol/l (3.5-5.1)
[2021-03-02 06:08] LABS: CREATININE 5.8 mg/dL (0.7-1.3)
--- NOTE | 2021-03-02 07:00 | NUR ---
PT REPORT RECEIVED FROM NIGHT NURSES, ALBERTO.
--- NOTE | 2021-03-02 08:00 | NUR ---
PT WAS FOUND RESTING IN BED IN SEMI-CEDEÑO'S POSITION;PT IS A&OX3;VS AND ASSESSMENT WERE COMPLETED;HEART SOUNDS ARE REGULAR IN RATE AND RHYTHM;TELE IS IN PLACE;LUNG SOUNDS ARE CLEAR;RESPIRATIONS ARE EVEN AND UNLABORED ON RA;ABDOMEN IS SOFT WITH ACTIVE BOWEL SOUNDS IN ALL QUADRANTS;#20G IV IN RAC IS SL, PATENT AND FREE OF COMPLICATIONS AT THIS TIME;PT HAS A FISTULA IN LEFT ARM WITH POSITIVE BRUIT AND THRILL PRESENT DURING ASSESSMENT;SAFETY PRECAUTIONS IN PLACE;CALL LIGHT WITHIN REACH;PT ENCOURAGED TO CALL WITH ANY NEEDS OR CONCERNS;WILL CONTINUE TO MONITOR.
[2021-03-02 08:25] VITALS: BP 190/87
--- NOTE | 2021-03-02 09:30 | NUR ---
AND CASEY YOUSSEF AT BEDSIDE DISCUSSING POC WITH PT.
[2021-03-02 09:54] VITALS: BP 190/87
--- NOTE | 2021-03-02 12:00 | NUR ---
PT WAS FOUND RESTING IN BED EATING LUNCH;TELE IS IN PLACE;PT HAS NO REPORTS OF PAIN AT THIS TIME;SAFETY PRECAUTIONS IN PLACE;CALL LIGHT WITHIN REACH;WILL CONTINUE TO MONITOR.
--- NOTE | 2021-03-02 14:33 | NUR ---
Discharge instructions given. Patient verbalizes understanding of same. Discharged in stable condition via Wheelchair to Home with spouse. All belongings sent with pt. DISCHARGE PACKET WAS GIVEN TO PT;DC INSTRUCTIONS WERE EXPLAINED TO;PT EXPRESSED UNDERSTANDING AND HAD NO FURTHER QUESTIONS;SIGNATURE WAS OBTAINED;TELE REMOVED;IV REMOVED WITH NO COMPLICATIONS AND CATHETER INTACT;PT WILL BE TRANSPORTED HOME WITH SPOUSE. PT WAS DISCHARGED TO [facility] IN STABLE CONDITION;PT CHOSE TO AMBULATE INSTEAD OF VIA WC;PT WAS ACCOMPANIED BY HIS ;ALL PT BELONGINGS WERE SENT WITH PT;PT WILL BE TRANSPORTED HOME WITH FAMILY.
== END 2021-03-02 14:38 | disposition home or self-care (01) ==
LOC: ED 13:43 → ED-I 15:15 → ED 15:34 → MS2 15:35
PROVIDERS: Family Medicine; Nurse Practitioner; ADMIT Hospitalist; ATTEND Hospitalist
DX: R07.9 Chest pain, unspecified (principal); E11.22 Type 2 diabetes mellitus with diabetic chronic kidney disease; I12.0 Hypertensive chronic kidney disease with stage 5 chronic kidney disease or end stage renal disease; N18.6 End stage renal disease; E87.1 Hypo-osmolality and hyponatremia; I25.10 Atherosclerotic heart disease of native coronary artery without angina pectoris; E78.5 Hyperlipidemia, unspecified; K21.9 Gastro-esophageal reflux disease without esophagitis; I25.2 Old myocardial infarction; Z99.2 Dependence on renal dialysis; Z79.4 Long term (current) use of insulin; Z86.73 Personal history of transient ischemic attack (TIA), and cerebral infarction without residual deficits; Z86.16 Personal history of COVID-19; Z95.5 Presence of coronary angioplasty implant and graft; Z79.01 Long term (current) use of anticoagulants; Z20.822 Contact with and (suspected) exposure to COVID-19
CPT/HCPCS: G0378

== ENCOUNTER 2021-04-29 06:13 | Emergency (ER) | payer MEDICARE, MEDICAID ==
[~2021-04-29] VITALS: Ht 162.6 cm; Wt 85.9 kg
[~2021-04-29 06:13] MED LIST changes: +LEVEMIR100 UNIT SC; +LOSARTAN POTASS25 MG PO; +NOVOLIN R100 UNIT/1 SC; +PRILOSEC20 MG/CAP PO
[2021-04-29] MEDS ORDERED: HYDROCO/APAP1 TA9 PO (07:35)
[2021-04-29 07:53] VITALS: BP 149/65
[2021-04-30] MEDS ORDERED: ULTRAM50 MG PO (11:17)
[2021-04-30] MEDS ORDERED: ZOFRAN4 MG/TAB PO (11:17)
== END 2021-04-29 07:58 | disposition home or self-care (01) ==
LOC: ED 06:13
DX: L02.512 Cutaneous abscess of left hand (principal); E11.9 Type 2 diabetes mellitus without complications; I10 Essential (primary) hypertension; I25.2 Old myocardial infarction; K21.9 Gastro-esophageal reflux disease without esophagitis; Z86.16 Personal history of COVID-19; Z79.4 Long term (current) use of insulin; Z86.73 Personal history of transient ischemic attack (TIA), and cerebral infarction without residual deficits

== ENCOUNTER 2021-04-30 07:49 | Emergency (ER) | payer MEDICARE, MEDICAID ==
[~2021-04-30] VITALS: Ht 162.6 cm; Wt 86.0 kg
[~2021-04-30 07:49] MED LIST changes: +HYDROCO/APAP1 TA9 PO
[2021-04-30 09:22] LABS: HEMOGLOBIN 11.2 g/dl (14.0-18.0); IMMATURE GRANULOCYTES 0.7 % (0.0-5.0); MEAN CELL VOLUME 96.9 fL CALC (80.0-100.0); MEAN CORPUSCULAR HGB 31.9 pG CALC (26.0-32.0); MEAN CORPUSCULAR HGB CONC 32.9 g/dL CAL (32.0-36.0); NEUT# 5.36 thou/uL (1.82-7.42); RED BLOOD COUNT 3.51 mill/uL (4.70-6.10); RED CELL DISTRI WIDTH 14.9 % (11.5-15.5)
[2021-04-30 09:41] LABS: ALBUMIN 4.2 g/dL (3.2-5.0); TOTAL PROTEIN 7.5 g/dL (6.3-8.2)
[2021-04-30 09:46] LABS: BILIRUBIN, TOTAL 0.6 mg/dL (0.0-1.4); CREATININE 8.3 mg/dL (0.7-1.3); POTASSIUM 5.7 mmol/l (3.5-5.1)
[2021-04-30 10:00] LABS: ACT PARTIAL THROMBO TIME 26.4 SECONDS (20.0-32.5); PROTHROMBIN TIME 10.8 SECONDS (9.0-12.5)
[2021-04-30] MEDS ORDERED: ULTRAM50 MG PO (11:17)
[2021-04-30] MEDS ORDERED: ZOFRAN4 MG/TAB PO (11:17)
[2021-04-30 11:20] VITALS: BP 156/68
== END 2021-04-30 11:30 | disposition home or self-care (01) ==
LOC: ED 07:49
DX: R11.0 Nausea (principal); R42 Dizziness and giddiness; T40.2X5A Adverse effect of other opioids, initial encounter; L02.512 Cutaneous abscess of left hand; I12.0 Hypertensive chronic kidney disease with stage 5 chronic kidney disease or end stage renal disease; E11.22 Type 2 diabetes mellitus with diabetic chronic kidney disease; N18.6 End stage renal disease; I25.2 Old myocardial infarction; K21.9 Gastro-esophageal reflux disease without esophagitis; Z99.2 Dependence on renal dialysis; Z86.16 Personal history of COVID-19; Z86.73 Personal history of transient ischemic attack (TIA), and cerebral infarction without residual deficits; Z79.4 Long term (current) use of insulin; Z95.5 Presence of coronary angioplasty implant and graft; Z90.5 Acquired absence of kidney; Z20.822 Contact with and (suspected) exposure to COVID-19

== ENCOUNTER 2021-05-03 13:19 | Emergency (ER) | payer MEDICARE, MEDICAID ==
[~2021-05-03] VITALS: Ht 162.6 cm; Wt 86.0 kg
[~2021-05-03 13:19] MED LIST changes: +ULTRAM50 MG PO; +ZOFRAN4 MG/TAB PO
[2021-05-03 17:00] VITALS: BP 127/70
[2021-05-03 18:10] LABS: HEMATOCRIT 31.4 % (39.0-50.0); HEMOGLOBIN 10.2 g/dl (14.0-18.0); IMMATURE GRANULOCYTES 0.1 % (0.0-5.0); MEAN CELL VOLUME 98.1 fL CALC (80.0-100.0); MEAN CORPUSCULAR HGB 31.9 pG CALC (26.0-32.0); MEAN CORPUSCULAR HGB CONC 32.5 g/dL CAL (32.0-36.0); NEUT# 6.55 thou/uL (1.82-7.42); RED BLOOD COUNT 3.2 mill/uL (4.70-6.10); RED CELL DISTRI WIDTH 15.1 % (11.5-15.5)
[2021-05-03 18:35] LABS: CREATININE 4.9 mg/dL (0.7-1.3); POTASSIUM 5.1 mmol/l (3.5-5.1)
[2021-05-03] MEDS ORDERED: CLEOCIN150 M1 PO (19:07)
== END 2021-05-03 19:47 | disposition home or self-care (01) ==
LOC: ED 13:19
PROVIDERS: Emergency Medicine
DX: L08.9 Local infection of the skin and subcutaneous tissue, unspecified (principal); I12.0 Hypertensive chronic kidney disease with stage 5 chronic kidney disease or end stage renal disease; E11.22 Type 2 diabetes mellitus with diabetic chronic kidney disease; N18.6 End stage renal disease; I25.10 Atherosclerotic heart disease of native coronary artery without angina pectoris; K21.9 Gastro-esophageal reflux disease without esophagitis; M19.90 Unspecified osteoarthritis, unspecified site; I25.2 Old myocardial infarction; Z86.16 Personal history of COVID-19; Z79.4 Long term (current) use of insulin; Z86.73 Personal history of transient ischemic attack (TIA), and cerebral infarction without residual deficits; Z95.5 Presence of coronary angioplasty implant and graft

== ENCOUNTER 2021-05-11 02:08 | Emergency (ER) | payer MEDICARE, MEDICAID ==
[~2021-05-11] VITALS: Ht 162.6 cm; Wt 84.5 kg
[~2021-05-11 02:08] MED LIST changes: +CLEOCIN150 M1 PO
[2021-05-11 02:53] LABS: HEMATOCRIT 28.2 % (39.0-50.0); HEMOGLOBIN 8.9 g/dl (14.0-18.0); IMMATURE GRANULOCYTES 0.4 % (0.0-5.0); MEAN CORPUSCULAR HGB 31.6 pG CALC (26.0-32.0); MEAN CORPUSCULAR HGB CONC 31.6 g/dL CAL (32.0-36.0); NEUT# 4.83 thou/uL (1.82-7.42); RED BLOOD COUNT 2.82 mill/uL (4.70-6.10); RED CELL DISTRI WIDTH 14.7 % (11.5-15.5)
[2021-05-11 03:11] LABS: ALBUMIN 3.7 g/dL (3.2-5.0); BILIRUBIN, TOTAL 0.4 mg/dL (0.0-1.4); POTASSIUM 4.4 mmol/l (3.5-5.1); TOTAL PROTEIN 6.9 g/dL (6.3-8.2)
[2021-05-11 03:40] LABS: CREATININE 6.5 mg/dL (0.7-1.3)
[2021-05-11 04:10] VITALS: BP 100/46
== END 2021-05-11 04:20 | disposition home or self-care (01) ==
LOC: ED 02:08
DX: F41.9 Anxiety disorder, unspecified (principal); L08.9 Local infection of the skin and subcutaneous tissue, unspecified; I12.0 Hypertensive chronic kidney disease with stage 5 chronic kidney disease or end stage renal disease; E11.22 Type 2 diabetes mellitus with diabetic chronic kidney disease; N18.6 End stage renal disease; D64.9 Anemia, unspecified; I25.10 Atherosclerotic heart disease of native coronary artery without angina pectoris; K21.9 Gastro-esophageal reflux disease without esophagitis; I25.2 Old myocardial infarction; Z99.2 Dependence on renal dialysis; Z79.4 Long term (current) use of insulin; Z86.16 Personal history of COVID-19; Z95.5 Presence of coronary angioplasty implant and graft; Z90.5 Acquired absence of kidney; Z86.73 Personal history of transient ischemic attack (TIA), and cerebral infarction without residual deficits
CPT/HCPCS: J2060

== ENCOUNTER 2021-05-30 01:20 | Emergency (ER) | payer MEDICARE, MEDICAID ==
[~2021-05-30] VITALS: Ht 162.6 cm; Wt 84.5 kg
[2021-05-30] MEDS ORDERED: ATIVAN1 MG PO ×2 (02:06→06:54)
[2021-05-30] MEDS ORDERED: TRAMADOL HYDROC50 M1 PO ×2 (02:06→06:54)
[2021-05-30 03:00] VITALS: BP 136/88
== END 2021-05-30 03:25 | disposition home or self-care (01) ==
LOC: ED 01:20
DX: F41.9 Anxiety disorder, unspecified (principal); L08.9 Local infection of the skin and subcutaneous tissue, unspecified; E11.22 Type 2 diabetes mellitus with diabetic chronic kidney disease; I12.0 Hypertensive chronic kidney disease with stage 5 chronic kidney disease or end stage renal disease; N18.6 End stage renal disease; I25.2 Old myocardial infarction; Z99.2 Dependence on renal dialysis; Z79.4 Long term (current) use of insulin; Z86.73 Personal history of transient ischemic attack (TIA), and cerebral infarction without residual deficits; Z86.16 Personal history of COVID-19

== ENCOUNTER 2021-06-20 07:08 | Emergency (ER) | payer MEDICARE, MEDICAID ==
[~2021-06-20] VITALS: Ht 162.6 cm; Wt 85.0 kg
[~2021-06-20 07:08] MED LIST changes: +ATIVAN1 MG PO; +TRAMADOL HYDROC50 M1 PO
[2021-06-20 09:24] LABS: HEMATOCRIT 32.7 % (39.0-50.0); HEMOGLOBIN 10.4 g/dl (14.0-18.0); IMMATURE GRANULOCYTES 0.3 % (0.0-5.0); MEAN CELL VOLUME 98.2 fL CALC (80.0-100.0); MEAN CORPUSCULAR HGB 31.2 pG CALC (26.0-32.0); MEAN CORPUSCULAR HGB CONC 31.8 g/dL CAL (32.0-36.0); NEUT# 3.82 thou/uL (1.82-7.42); RED BLOOD COUNT 3.33 mill/uL (4.70-6.10); RED CELL DISTRI WIDTH 15.6 % (11.5-15.5)
[2021-06-20 09:46] LABS: ALBUMIN 4.2 g/dL (3.2-5.0); ALKALINE PHOSPHATASE 85 u/l (38-126); ANION GAP 14 (6-22 (CALC)); BUN 22 mg/dL (8-23); CARBON DIOXIDE 36 mmol/l (22-30); CHLORIDE 91 mmol/l (95-108); POTASSIUM 4.5 mmol/l (3.5-5.1); SGOT/AST 24 u/l (19-48); SODIUM 137 mmol/l (137-146); TOTAL PROTEIN 7.8 g/dL (6.3-8.2)
[2021-06-20 09:53] LABS: BILIRUBIN, TOTAL 0.7 mg/dL (0.0-1.4); BUN/CREATININE RATIO 4 (12-20 (CALC)); GFR 10 ML/MIN (>=60 (CALC)); GFR FOR AFR.AMER. 12 ML/MIN (>=60 (CALC))
[2021-06-20 09:57] LABS: MYOGLOBIN 113 ng/mL (0 - 121)
[2021-06-20 10:10] VITALS: BP 166/69
[2021-06-20] MEDS ORDERED: KEFLEX500 MG PO (10:33)
== END 2021-06-20 10:32 | disposition home or self-care (01) ==
LOC: ED 07:08
PROVIDERS: Emergency Medicine
DX: F41.9 Anxiety disorder, unspecified (principal); L08.9 Local infection of the skin and subcutaneous tissue, unspecified; E11.22 Type 2 diabetes mellitus with diabetic chronic kidney disease; I12.0 Hypertensive chronic kidney disease with stage 5 chronic kidney disease or end stage renal disease; N18.6 End stage renal disease; K21.9 Gastro-esophageal reflux disease without esophagitis; I25.2 Old myocardial infarction; Z99.2 Dependence on renal dialysis; Z79.4 Long term (current) use of insulin; Z86.73 Personal history of transient ischemic attack (TIA), and cerebral infarction without residual deficits; Z86.16 Personal history of COVID-19; Z95.5 Presence of coronary angioplasty implant and graft

== ENCOUNTER 2022-02-28 17:40 | Emergency (ER) | payer MEDICARE, MEDICAID ==
[~2022-02-28] VITALS: Ht 162.6 cm; Wt 81.8 kg
[~2022-02-28 17:40] MED LIST changes: +KEFLEX500 MG PO; +LORAZEPAM0.5 MG PO; +XARELTO10 MG PO
[2022-02-28 20:25] LABS: HEMATOCRIT 31.4 % (39.0-50.0); HEMOGLOBIN 10.1 g/dl (14.0-18.0); IMMATURE GRANULOCYTES 0.2 % (0.0-5.0); MEAN CELL VOLUME 95.7 fL CALC (80.0-100.0); MEAN CORPUSCULAR HGB 30.8 pG CALC (26.0-32.0); MEAN CORPUSCULAR HGB CONC 32.2 g/dL CAL (32.0-36.0); NEUT# 7.25 thou/uL (1.82-7.42); RED BLOOD COUNT 3.28 mill/uL (4.70-6.10); RED CELL DISTRI WIDTH 16.5 % (11.5-15.5)
[2022-02-28 20:31] VITALS: BP 157/51
[2022-02-28] MEDS ORDERED: LORTAB 1010 MG PO (20:34)
[2022-02-28 20:40] LABS: ALBUMIN 4.3 g/dL (3.2-5.0); BILIRUBIN, TOTAL 0.5 mg/dL (0.0-1.4); CREATININE 4.2 mg/dL (0.7-1.3); POTASSIUM 4.3 mmol/l (3.5-5.1); TOTAL PROTEIN 7.8 g/dL (6.3-8.2)
[2022-02-28 20:41] LABS: INTERNATIONAL NORMALIZED RATIO 1.1 RATIO (0.7-1.3); PROTHROMBIN TIME 11.6 SECONDS (9.0-12.5)
[2022-02-28 20:46] VITALS: BP 169/56
[2022-02-28 21:01] VITALS: BP 141/56
== END 2022-02-28 20:20 | disposition home or self-care (01) ==
LOC: ED 17:40
PROVIDERS: Emergency Medicine
PROC: 2Y41X5Z Packing of Nasal Region using Packing Material (ICD-10-PCS; principal; 2022-02-28)
DX: R04.0 Epistaxis (principal); I12.0 Hypertensive chronic kidney disease with stage 5 chronic kidney disease or end stage renal disease; E11.22 Type 2 diabetes mellitus with diabetic chronic kidney disease; N18.6 End stage renal disease; K21.9 Gastro-esophageal reflux disease without esophagitis; I25.2 Old myocardial infarction; Z99.2 Dependence on renal dialysis; Z79.4 Long term (current) use of insulin; Z79.01 Long term (current) use of anticoagulants; Z86.73 Personal history of transient ischemic attack (TIA), and cerebral infarction without residual deficits; Z86.16 Personal history of COVID-19; Z95.5 Presence of coronary angioplasty implant and graft; Z90.5 Acquired absence of kidney

== ENCOUNTER 2022-03-11 01:08 | Emergency (ER) | payer MEDICARE, MEDICAID ==
[~2022-03-11] VITALS: Ht 162.6 cm; Wt 79.5 kg
[2022-03-11 01:24] VITALS: BP 153/66
[2022-03-11 01:37] VITALS: BP 144/47
[2022-03-11 01:46] VITALS: BP 127/30
[2022-03-11 02:13] LABS: HEMATOCRIT 30.1 % (39.0-50.0); HEMOGLOBIN 9.5 g/dl (14.0-18.0); IMMATURE GRANULOCYTES 0.3 % (0.0-5.0); MEAN CELL VOLUME 97.4 fL CALC (80.0-100.0); MEAN CORPUSCULAR HGB 30.7 pG CALC (26.0-32.0); MEAN CORPUSCULAR HGB CONC 31.6 g/dL CAL (32.0-36.0); NEUT# 6.63 thou/uL (1.82-7.42); RED BLOOD COUNT 3.09 mill/uL (4.70-6.10); RED CELL DISTRI WIDTH 16.7 % (11.5-15.5)
[2022-03-11 02:15] VITALS: BP 140/43
[2022-03-11] MEDS ORDERED: AMOXICILLIN500 MG PO (02:22)
[2022-03-11] MEDS ORDERED: PERCOCET 5/325M1 TAB PO (02:22)
[2022-03-11 02:25] VITALS: BP 140/63
== END 2022-03-11 02:30 | disposition home or self-care (01) ==
LOC: ED 01:08
PROVIDERS: Family Medicine
PROC: 2Y41X5Z Packing of Nasal Region using Packing Material (ICD-10-PCS; principal; 2022-03-11)
DX: R04.0 Epistaxis (principal); E11.9 Type 2 diabetes mellitus without complications; I10 Essential (primary) hypertension; K21.9 Gastro-esophageal reflux disease without esophagitis; I25.2 Old myocardial infarction; Z86.16 Personal history of COVID-19; Z95.5 Presence of coronary angioplasty implant and graft; Z90.5 Acquired absence of kidney; Z86.73 Personal history of transient ischemic attack (TIA), and cerebral infarction without residual deficits; Z79.4 Long term (current) use of insulin

== ENCOUNTER 2022-03-11 18:50 | Emergency (ER) | payer MEDICARE, MEDICAID ==
[~2022-03-11] VITALS: Ht 162.6 cm; Wt 79.5 kg
[~2022-03-11 18:50] MED LIST changes: +AMOXICILLIN500 MG PO
[2022-03-11 19:08] VITALS: BP 158/76
[2022-03-11 20:40] VITALS: BP 158/76
== END 2022-03-11 20:50 | disposition home or self-care (01) ==
LOC: ED 18:50
DX: J34.89 Other specified disorders of nose and nasal sinuses (principal); I10 Essential (primary) hypertension; E11.9 Type 2 diabetes mellitus without complications; I25.2 Old myocardial infarction; K21.9 Gastro-esophageal reflux disease without esophagitis; Z86.16 Personal history of COVID-19; Z95.5 Presence of coronary angioplasty implant and graft; Z90.5 Acquired absence of kidney; Z86.73 Personal history of transient ischemic attack (TIA), and cerebral infarction without residual deficits; Z79.4 Long term (current) use of insulin

== ENCOUNTER 2022-06-10 15:18 | Emergency (ER) | payer MEDICARE ==
[2022-06-10] VITALS (12 sets, daily range): BP systolic 114–151; BP diastolic 40–71
[~2022-06-10] VITALS: Ht 162.6 cm; Wt 81.8 kg
[2022-06-10 15:53] LABS: IMMATURE GRANULOCYTES 0.2 % (0.0-5.0); MEAN CORPUSCULAR HGB 31.9 pG CALC (26.0-32.0); MEAN CORPUSCULAR HGB CONC 32.9 g/dL CAL (32.0-36.0); NEUT# 8.47 thou/uL (1.82-7.42); RED BLOOD COUNT 3.61 mill/uL (4.70-6.10); RED CELL DISTRI WIDTH 17.1 % (11.5-15.5)
[2022-06-10 15:54] LABS: HEMOGLOBIN 11.5 g/dl (14.0-18.0)
[2022-06-10 16:23] LABS: BILIRUBIN, TOTAL 0.6 mg/dL (0.0-1.4); TOTAL PROTEIN 7.3 g/dL (6.3-8.2)
[2022-06-10 16:29] LABS: CREATININE 8.6 mg/dL (0.7-1.3); POTASSIUM 5.7 mmol/l (3.5-5.1)
== END 2022-06-10 18:57 | disposition home or self-care (01) ==
LOC: ED 15:18
PROVIDERS: Family Medicine
DX: R53.1 Weakness (principal); I12.0 Hypertensive chronic kidney disease with stage 5 chronic kidney disease or end stage renal disease; E11.22 Type 2 diabetes mellitus with diabetic chronic kidney disease; N18.6 End stage renal disease; I25.2 Old myocardial infarction; Z99.2 Dependence on renal dialysis; Z79.4 Long term (current) use of insulin; Z86.73 Personal history of transient ischemic attack (TIA), and cerebral infarction without residual deficits; Z86.16 Personal history of COVID-19

== ENCOUNTER 2022-09-25 04:59 | Observation (INO) | payer MEDICARE ==
[~2022-09-25] VITALS: Ht 162.6 cm; Wt 81.0 kg
[2022-09-25] VITALS (22 sets, daily range): BP systolic 107–150; BP diastolic 34–93
[2022-09-25 06:12] LABS: BASO% 1.3 % (0-3); EOS% 3.8 % (0-8); HEMATOCRIT 30.3 % (39.0-50.0); HEMOGLOBIN 9.6 g/dl (14.0-18.0); IMMATURE GRANULOCYTES 0.3 % (0.0-5.0); LYMPH% 24.1 % (15-41); MEAN CORPUSCULAR HGB 32.8 pG CALC (26.0-32.0); MEAN CORPUSCULAR HGB CONC 31.7 g/dL CAL (32.0-36.0); MONO% 7.5 % (2-13); NEUT# 5.93 thou/uL (1.82-7.42); RED BLOOD COUNT 2.93 mill/uL (4.70-6.10); RED CELL DISTRI WIDTH 17.4 % (11.5-15.5)
--- NOTE | 2022-09-25 06:14 | NUR ---
PATIENT AMBULATED TO ROOM 14. ASSESSED BY PHYSICIAN.
[2022-09-25 06:15] LABS: MEAN CELL VOLUME 103.4 fL CALC (80.0-100.0)
[2022-09-25 06:21] LABS: ALBUMIN 4.3 g/dL (3.2-5.0); BILIRUBIN, TOTAL 0.6 mg/dL (0.2-1.3); TOTAL PROTEIN 8.1 g/dL (6.3-8.2)
[2022-09-25 06:25] LABS: CREATININE 5.4 mg/dL (0.7-1.3); POTASSIUM 4.4 mmol/l (3.5-5.1)
--- NOTE | 2022-09-25 07:00 | NUR ---
BEDSIDE REPORT RECIEVED FROM NORA
--- NOTE | 2022-09-25 08:25 | NUR ---
PATIENT RESTING IN BED WITH EYES CLOSED
--- NOTE | 2022-09-25 09:15 | NUR ---
RECEIVE PATIENT FROM ER. REPORT FROM [facility] ER NURSE. PATIENT ACCOMPANIED FOR THE FAMILY. PT ALERT AND ORIENTED X3. PATIENT IS EDUCATED ABOUD ADMISSION, MEDICATIONS AND NURSING PLAN. MED REC DONE. SAFETY AND FALL PRECAUTIONS IN PLACE. CALL LIGHT WITHIN IN REACH.
--- NOTE | 2022-09-25 09:57 | NUR ---
PATIENT TRANSFERRED TO MED SURG. BEDSIDE REPORT GIVEN TO ROSIE. PATIENT AMBULATED FROM WHEELCHAIR TO BED WITHOUT DIFFICULTY
--- NOTE | 2022-09-25 12:00 | NUR ---
PATIENT RESTING IN BED STABLE AT THIS TIME.
--- NOTE | 2022-09-25 16:52 | NUR ---
PT RESTING IN BED WITH CLOSE EYES. RESPIRATIONS EVEN AND UNLABORED ON ROOM AIR. PT DENIES OF ANY NEEDS. ALL SAFTEY PRECAUTIONS ARE IN PLACE WITH CALL LIGHT IN REACH. BED ALARM ACTIVE. CONTINUE MONITORING.
--- NOTE | 2022-09-25 20:00 | NUR ---
RECEIVED REPORT FROM DAY SHIFT RN. PT IS RESTING IN BED IN LOW SEMI-CEDEÑO'S POSITION, AWAKE. AT BEDSIDE. PT IS A&OX3 AND ABLE TO COMMUNICATE NEEDS. ASSESSMENT COMPLETED. PT DENIES ANY PAIN OR DISCOMFORT AT THIS TIME. IV IS PATENT AND FLUSHES WELL. PT IS ON ROOM AIR, BREATHING EVEN AND UNLABORED. SPOUSE WILL SPEND THE NIGHT WITH PT, APPROVED BY RECRUITMENT AND OUTREACH ASSISTANT. CALL LIGHT AND BEDSIDE TABLE WITHIN REACH. SAFETY PRECAUTIONS IN PLACE.
--- NOTE | 2022-09-26 00:18 | NUR ---
PT RESTING IN BED IN SUPINE POSITION, SLEEPING. BREATHING EVEN AND UNLABORED. TELEMETRY IN PLACE. CALL LIGHT AND BEDSIDE TABLE WITHIN REACH, SAFETY PRECAUTIONS IN PLACE.
[2022-09-26 00:29] VITALS: BP 98/37
--- NOTE | 2022-09-26 04:00 | NUR ---
PT RESTINGIN BED IN SUPINE POSITION, EYES CLOSED. BREATHING IS EVEN AND UNLABORED, ON ROOM AIR. IV IS PATENT AND FLUSHES WELL. NO SIGNS OF PAIN OR DISTRESS NOTED AT THIS TIME. TELEMETRY IN PLACE, MONITORED BY ED. CALL LIGHT AND BEDSIDE TABLE WITHIN REACH.
[2022-09-26 04:13] VITALS: BP 101/29
[2022-09-26 06:14] LABS: BASO% 1.1 % (0-3); HEMATOCRIT 29.8 % (39.0-50.0); HEMOGLOBIN 9.4 g/dl (14.0-18.0); IMMATURE GRANULOCYTES 0.1 % (0.0-5.0); LYMPH% 23.4 % (15-41); MEAN CELL VOLUME 103.5 fL CALC (80.0-100.0); MEAN CORPUSCULAR HGB 32.6 pG CALC (26.0-32.0); MEAN CORPUSCULAR HGB CONC 31.5 g/dL CAL (32.0-36.0); MONO% 6.4 % (2-13); NEUT# 5.2 thou/uL (1.82-7.42); RED BLOOD COUNT 2.88 mill/uL (4.70-6.10); RED CELL DISTRI WIDTH 17.1 % (11.5-15.5)
[2022-09-26 06:18] LABS: ALBUMIN 4.1 g/dL (3.2-5.0); BILIRUBIN, TOTAL 0.4 mg/dL (0.2-1.3); POTASSIUM 4.1 mmol/l (3.5-5.1); TOTAL PROTEIN 7.6 g/dL (6.3-8.2)
[2022-09-26 06:48] VITALS: BP 101/29
[2022-09-26 06:48] LABS: CREATININE 7.1 mg/dL (0.7-1.3)
--- NOTE | 2022-09-26 08:15 | NUR ---
RECIEVED REPORT FROM NIGHTSHIFT NURSE. PT SITTING UP IN CHAIR EATING BREAKFAST. PT DENIES ANY PAIN BUT STATES FEELING "WAVES OF ANXIETY." RELAXATION TECHNIQUES ENCOURAGED FOR PT. INFORMED PT OF DIALYSIS SCHEDULE TODAY. PT BLOOD PRESSURE BELOW NORMAL FOR HYPERTENSIVE MEDICATIONS PER EMAR. DISCUSSED WITH ANRP ON DUTY, PER ANRP HOLDING ALL MORNING MEDICATIONS EXCEPT INSULIN PER EMAR. CALL LIGHT WITHIN REACH AND SAFETY PRECAUTIONS IN [place].
--- NOTE | 2022-09-26 09:00 | NUR ---
HELD ALL PT PO MEDICATION PER ANRP MOJGAN ORDERS.
--- NOTE | 2022-09-26 11:10 | NUR ---
PT BROUGHT TO DIALYSIS TREATMENT ROOM FOR PRESCRIBED HEMODIALYSIS FROM ROOM 264 VIA WHEELCHAIR. ACCOMPANIED Malia AGUERO RN. HAND-OFF REPORT RECEIVED FROM PRIMARY NURSE Malia AGUERO RN. CARE OF PT ASSUMED AT THIS TIME.
--- NOTE | 2022-09-26 11:17 | NUR ---
CALLED IN A PHYSICIAN CONSULT FOR DR BETTS. I SPOKE WITH SAIRA AT 1115 HRS.
--- NOTE | 2022-09-26 11:19 | NUR ---
HEMODIALYSIS TREATMENT INITIATED AT 1119. SEE HEMODIALYSIS TREATMENT PROCESS INTERVENTION AND TABLO TREATMENT FLOWSHEET FOR TREATMENT SPECIFIC DETAILS.
--- NOTE | 2022-09-26 11:45 | NUR ---
PT CURRENTLY OFF THE FLOOR IN DIALYSIS.
--- NOTE | 2022-09-26 12:08 | NUR ---
DR. BETTS IN TO SEE PT.
--- NOTE | 2022-09-26 14:34 | NUR ---
HEMODIALYSIS TREATMENT COMPLETED AT 1434. SEE HEMODIALYSIS TREATMENT PROCESS INTERVENTION AND TABLO TREATMENT FLOWSHEET FOR TREATMENT SPECIFIC DETAILS.
[2022-09-26 14:35] VITALS: BP 131/63
--- NOTE | 2022-09-26 14:45 | NUR ---
POST HEMODIALYSIS PT RETURNED TO ROOM 264 VIA WHEELCHAIR. ACCOMPANIED BY Shaggy ARCEO LPN. HAND-OFF REPORT ENDORSED Shaggy ARCEO LPN. CARE OF PT SURRENDERED AT THIS TIME.
--- NOTE | 2022-09-26 15:10 | NUR ---
Discharge instructions given. Patient verbalizes understanding of same. Discharged in stable condition via Wheelchair to Home with family. All belongings sent with pt. PT IV REMOVED, TELEMENTRY MONITOR REMOVED, AND PT HOMEMEDICATION PER EMAR AND PHARMACY WAS RETURNED TO PT UPON DISCHARGE.
[2022-09-26 15:35] VITALS: BP 140/76
== END 2022-09-26 14:57 | disposition home or self-care (01) ==
LOC: ED 04:59 → MS2 07:00
PROVIDERS: Family Medicine; Nurse Practitioner Family; ADMIT Internal Medicine; ATTEND Internal Medicine
PROC: 5A1D70Z Performance of Urinary Filtration, Intermittent, Less than 6 Hours Per Day (ICD-10-PCS; principal; 2022-09-26)
DX: R07.9 Chest pain, unspecified (principal); I13.2 Hypertensive heart and chronic kidney disease with heart failure and with stage 5 chronic kidney disease, or end stage renal disease; E11.22 Type 2 diabetes mellitus with diabetic chronic kidney disease; N18.6 End stage renal disease; I50.9 Heart failure, unspecified; D63.1 Anemia in chronic kidney disease; N25.81 Secondary hyperparathyroidism of renal origin; I25.10 Atherosclerotic heart disease of native coronary artery without angina pectoris; E78.5 Hyperlipidemia, unspecified; F41.9 Anxiety disorder, unspecified; K21.9 Gastro-esophageal reflux disease without esophagitis; I25.2 Old myocardial infarction; Z86.16 Personal history of COVID-19; Z86.73 Personal history of transient ischemic attack (TIA), and cerebral infarction without residual deficits; Z99.2 Dependence on renal dialysis; Z95.5 Presence of coronary angioplasty implant and graft; Z90.5 Acquired absence of kidney; Z79.4 Long term (current) use of insulin; I44.0 Atrioventricular block, first degree
CPT/HCPCS: J1644; J2060; Q5106 EC

== ENCOUNTER 2022-10-17 16:39 | Inpatient (IN) | payer MEDICARE ==
[2022-10-17] VITALS (7 sets, daily range): BP systolic 111–123; BP diastolic 43–63
[~2022-10-17] VITALS: Ht 162.6 cm; Wt 80.0 kg
[2022-10-17 17:58] LABS: BASO% 1.1 % (0-3); EOS% 3.3 % (0-8); HEMOGLOBIN 9.6 g/dl (14.0-18.0); IMMATURE GRANULOCYTES 0.2 % (0.0-5.0); LYMPH% 16.9 % (15-41); MEAN CORPUSCULAR HGB 31.9 pG CALC (26.0-32.0); MONO% 6.7 % (2-13); NEUT# 7.28 thou/uL (1.82-7.42); NEUT% 71.8 % (42-76); RED BLOOD COUNT 3.01 mill/uL (4.70-6.10); RED CELL DISTRI WIDTH 15.9 % (11.5-15.5)
[2022-10-17 18:09] LABS: ALBUMIN 3.9 g/dL (3.2-5.0); BILIRUBIN, TOTAL 0.5 mg/dL (0.2-1.3); CREATININE 3.6 mg/dL (0.7-1.3); TOTAL PROTEIN 6.9 g/dL (6.3-8.2)
--- NOTE | 2022-10-17 18:32 | NUR ---
PATIENT ED 11 VIA W/C
--- NOTE | 2022-10-17 22:41 | NUR ---
Admission Note Report Given to: YULIA OSORIO Transported by: Lisandro Transported with: Nurse Patent IV Tosser Location: [facility] [place] ROOM 278
--- NOTE | 2022-10-17 23:25 | NUR ---
TO FLOOR VIA W/C WITH POCKET MONITOR. PT A/O. YURI. BAG WITH SHIRT/SHOES/HAT TO FLOOR WITH PT. HUDSON.
--- NOTE | 2022-10-17 23:25 | NUR ---
PT ADMITTED TO MED SURG VIA WHEELCAHIR, PT CAME INTO ER FOR COMPLAINS OF WEAKNESS, HEADACHE AND JUST GENERAL "FEELING CRAPPY", PT IS A DIALYSIS PT LAST DIALYSED THIS AM, PT ADMITTED FOR AFIB WITH RATE CURRENTLY CONTROLLED IN THE 70-80'S, B/P STABLE AND PT HAS IV ACCESS IN [facility] AND [facility] IN [facility] AREA WITH [employer] AND [facility]. 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 PT AWARE OF PLAN OF CARE INCLUDING DAILY WEIGHTS, FLUID INTAKE MONITORING ETC. SAFETY MONITORING AND FALL RISK INTERVENTIONS ALOS EXPLAINED TO PT, AGAIN PT VERBALIZES UNDERSTANDING, ORIENTED TO ROOM AND UNIT CALL THEO REED.
--- NOTE | 2022-10-18 03:20 | NUR ---
PATIENT REMAINS RESTING IN BED WITH HOB ELEVATED. NO COMPLAINTS VOICED. DENIES ANY PAIN OR DISCOMFORT. PICTURES TAKEN EARLIER OF PATIENTS FEET. PATIENT VOICED HAVING TWO TOES REMOVED TWO MONTHS AGO. BED REMAINS IN LOW POSITION. CALL VENEGAS IN REACH.
[2022-10-18 04:28] VITALS: BP 152/79
[2022-10-18 06:13] VITALS: BP 117/52
[2022-10-18 06:14] LABS: BASO% 1.4 % (0-3); EOS% 5.2 % (0-8); HEMATOCRIT 29.9 % (39.0-50.0); HEMOGLOBIN 9.2 g/dl (14.0-18.0); IMMATURE GRANULOCYTES 0.3 % (0.0-5.0); LYMPH% 23.3 % (15-41); MEAN CELL VOLUME 102.7 fL CALC (80.0-100.0); MEAN CORPUSCULAR HGB 31.6 pG CALC (26.0-32.0); MEAN CORPUSCULAR HGB CONC 30.8 g/dL CAL (32.0-36.0); MONO% 7.8 % (2-13); NEUT# 4.92 thou/uL (1.82-7.42); RED BLOOD COUNT 2.91 mill/uL (4.70-6.10); RED CELL DISTRI WIDTH 16.1 % (11.5-15.5)
[2022-10-18 06:30] LABS: ALBUMIN 3.7 g/dL (3.2-5.0); BILIRUBIN, TOTAL 0.5 mg/dL (0.2-1.3); POTASSIUM 3.9 mmol/l (3.5-5.1); TOTAL PROTEIN 6.6 g/dL (6.3-8.2)
[2022-10-18 06:35] LABS: CREATININE 4.7 mg/dL (0.7-1.3); MAGNESIUM 2.4 mg/dL (1.6-2.3)
--- NOTE | 2022-10-18 08:00 | NUR ---
PT LAYING IN BED WITH HIS AT BEDSIDE, AWAKE AND ALERT, TALKING. PT HAS NO C/O PAIN AT THIS TIME. TELE ON AND LEADS ATTACHED. SITE TO LAC CLEAN AND INTACT. DRESSING TO TOES ON RIGHT AND LEFT FEET, CLEAN. CALL LUGHT WITHIN REACH.
--- NOTE | 2022-10-18 09:39 | NUR ---
BOOKED A CARDIOLOGY CONSULT WITH DR GROVER [facility]IA [facility] AT 0937 HRS.
--- NOTE | 2022-10-18 09:42 | NUR ---
CONTACTED DR BETTS'S OFFICE TO CONFIRM A PHYSICIAN CONSULT. I SPOKE WITH NOVEMBER AT 0942 HRS.
--- NOTE | 2022-10-18 10:00 | NUR ---
CARDIOLOGY ON [facility] TO SPEAK WITH PT, NEW ORDERS ENTERED.
--- NOTE | 2022-10-18 10:15 | NUR ---
PT DOWN TO XRAY BY VOLUNTEER, PT HAS NO C/O PAIN AND NO CHANGE IN STATUS AT THIS TIME.
--- NOTE | 2022-10-18 11:35 | NUR ---
PT TAKEN TO U/S FOR ECHOCARDIOGRAM.
--- NOTE | 2022-10-18 12:00 | NUR ---
PT CONTINUE TO BE OFF THE FLOOR IN U/S.
--- NOTE | 2022-10-18 13:00 | NUR ---
PT BACK TO RM AFTER U/S. PT HAS NO C/O PAIN , NO CHANGE IN STATUS AT THIS TIME. IV SITE TO RAC, INTACT. CALL LIGHR WITHIN REACH AND SAFETY MEASURES IN PLACE.
[2022-10-18 14:33] VITALS: BP 144/67
--- NOTE | 2022-10-18 16:00 | NUR ---
PT IN BED WITH FAMILY AT BEDSIDE. A&O X 3, NO C/O PAIN AT THIS TIME. PT IV SITE TO RAC INTACT. CALL LIGHT WITHIN REACH AND SAFETY MEASURES IN PLACE.
--- NOTE | 2022-10-18 20:00 | NUR ---
RECEIVED REPORT FROM DAYSHIFT NURSE. PT IS SITTING ON THE COUCH, AWAKE. AT BEDSIDE. PT IS A&OX3 AND ABLE TO COMMUNICATE NEEDS WITH STAFF. PT DENIES ANY PAIN OR DISCOMFORT AT THIS TIME. ON ROOM AIR, BREATHING EVEN AND UNLABORED. TELEMETRY IN PLACE, MONITORED BY ED. IV IS PATENT AND FLUSHES WELL. ASSESSMENT COMPLETED. ASKED TO STAY FOR THE NIGHT, SPEECH LANGUAGE PATHOLOGIST ASSISTANT APPROVED. PT FOR A BLANKET AND MORE WATER, PROVIDED ITEMS. CALL LIGHT AND BEDSIDE TABLE WITHIN REACH. SAFETY PRECAUTIONS IN PLACE.
--- NOTE | 2022-10-18 21:45 | NUR ---
DECIDED TO LEAVE AND GO HOME.
--- NOTE | 2022-10-18 23:39 | NUR ---
PT RESTING IN BED IN LOW SEMI-CEDEÑO'S POSITION, EYES CLOSED. NO SIGNS OF PAIN OR DISCOMFORT NOTED AT THIS TIME. TELEMETRY IN PLACE.
[2022-10-19 00:38] VITALS: BP 130/56
--- NOTE | 2022-10-19 04:00 | NUR ---
PT RESTING IN BED IN SUPINE POSITION, EYES CLOSED. ON ROOM AIR, BREATHING IS EVEN AND UNLABORED. NO SIGNS OF PAIN OR DISCOMFORT NOTED AT THIS TIME. IV IS PATENT AND FLUSHES WELL. TELEMETRY IN PLACE, MONITORED BY ED. CALL LIGHT AND BEDSIDE TABLE WITHIN REACH, SAFETY PRECAUTIONS IN PLACE.
[2022-10-19 04:07] VITALS: BP 115/45
[2022-10-19 05:31] LABS: BASO% 0.8 % (0-3); EOS% 5.4 % (0-8); HEMATOCRIT 31.4 % (39.0-50.0); HEMOGLOBIN 9.7 g/dl (14.0-18.0); IMMATURE GRANULOCYTES 0.2 % (0.0-5.0); LYMPH% 20.3 % (15-41); MEAN CELL VOLUME 102.6 fL CALC (80.0-100.0); MEAN CORPUSCULAR HGB 31.7 pG CALC (26.0-32.0); MEAN CORPUSCULAR HGB CONC 30.9 g/dL CAL (32.0-36.0); MONO% 6.8 % (2-13); NEUT# 6.36 thou/uL (1.82-7.42); NEUT% 66.5 % (42-76); RED BLOOD COUNT 3.06 mill/uL (4.70-6.10)
[2022-10-19 05:49] LABS: ALBUMIN 3.7 g/dL (3.2-5.0); MAGNESIUM 2.4 mg/dL (1.6-2.3); POTASSIUM 4.5 mmol/l (3.5-5.1)
[2022-10-19 06:05] LABS: CREATININE 6.3 mg/dL (0.7-1.3)
--- NOTE | 2022-10-19 06:12 | NUR ---
RECEIVED A CRITICAL CREATININE FROM LAB, PATIENT NURSE MADE AWARE.
[2022-10-19 06:27] VITALS: BP 117/49
--- NOTE | 2022-10-19 08:17 | NUR ---
PT IN BED WITH HOB UP, AWAKE AND ALERT. PT HAS NO C/O PAIN AT THIS TIME. IV SITE TO RAC CLEAN AND INTACT. TELE LEADS ON AND ATTACHED. DRESSING TO TOES ON BILAT FEET CLEAN AND INTACT. PT HAS CALL LIGHT WITHIN REACH AND SAFETY PRECAUTIONS IN PLACE.
[2022-10-19 10:53] VITALS: BP 120/53
--- NOTE | 2022-10-19 11:00 | NUR ---
PT TRANSPORTED TO DIALYSIS. NO CHANGE IN STATUS, A&O X3, PT HAS NO C/O PAIN AT THIS TIME.
--- NOTE | 2022-10-19 11:00 | NUR ---
PT TRANSPORTED TO DIALYSIS TREATMENT ROOM FROM ROOM 278 FOR PRESCRIBED DIALYSIS TREATMENT. TRANSPORTED VIA WHEELCHAIR, ACCOMPANIED BY Malia AGUERO RN. REPORT RECEIVED FROM Tere GOLDSMITH RN.
[2022-10-19 11:13] VITALS: BP 120/53
--- NOTE | 2022-10-19 11:23 | NUR ---
HEMODIALYSIS TREATMENT INITIATED AT 1123. SEE HEMODIALYSIS TREATMENT PROCESS INTERVENTION AND TABLO TREATMENT FLOWSHEET FOR TREATMENT SPECIFIC DETAILS.
--- NOTE | 2022-10-19 11:24 | NUR ---
BOOKED A FOLLOW-UP CARDIOLOGY CONSULT WITH DR GROVER [facility]IA [facility] AT 1117 HRS.
--- NOTE | 2022-10-19 12:06 | NUR ---
PT IN DIALYSIS.
[2022-10-19] MEDS ORDERED: ELIQUIS5 MG PO (13:42)
--- NOTE | 2022-10-19 14:43 | NUR ---
HEMODIALYSIS TREATMENT COMPLETED AT 14:43. SEE HEMODIALYSIS TREATMENT PROCESS INTERVENTION AND TABLO TREATMENT FLOWSHEET FOR TREATMENT SPECIFIC DETAILS.
[2022-10-19 14:50] VITALS: BP 139/69
--- NOTE | 2022-10-19 14:50 | NUR ---
PATIENT RETURN TO THE ROOM . GIVED REPORT TO THE NURSE BALDOMERO OSORIO.
--- NOTE | 2022-10-19 16:32 | NUR ---
Discharge instructions given. Patient verbalizes understanding of same. Discharged in stable condition via Wheelchair to Home with family. All belongings sent with pt.
== END 2022-10-19 16:22 | disposition home or self-care (01) | DRG 308 ==
LOC: ED 16:39 → ED-I 18:38 → ED 18:38 → ED-I 18:45 → ED 19:08 → MS2 19:09
PROVIDERS: Family Medicine; Internal Medicine Nephrology; Nurse Practitioner Family; ADMIT Internal Medicine; ATTEND Internal Medicine
PROC: 5A1D70Z Performance of Urinary Filtration, Intermittent, Less than 6 Hours Per Day (ICD-10-PCS; principal; 2022-10-19)
DX: I48.91 Unspecified atrial fibrillation (principal); N18.6 End stage renal disease; I13.2 Hypertensive heart and chronic kidney disease with heart failure and with stage 5 chronic kidney disease, or end stage renal disease; N25.81 Secondary hyperparathyroidism of renal origin; E11.22 Type 2 diabetes mellitus with diabetic chronic kidney disease; I50.9 Heart failure, unspecified; D63.1 Anemia in chronic kidney disease; E11.51 Type 2 diabetes mellitus with diabetic peripheral angiopathy without gangrene; I25.10 Atherosclerotic heart disease of native coronary artery without angina pectoris; R07.9 Chest pain, unspecified; I08.1 Rheumatic disorders of both mitral and tricuspid valves; I27.20 Pulmonary hypertension, unspecified; E78.5 Hyperlipidemia, unspecified; I25.2 Old myocardial infarction; Z99.2 Dependence on renal dialysis; Z79.4 Long term (current) use of insulin; Z86.73 Personal history of transient ischemic attack (TIA), and cerebral infarction without residual deficits; Z86.16 Personal history of COVID-19; Z95.5 Presence of coronary angioplasty implant and graft; Z79.01 Long term (current) use of anticoagulants; Z90.5 Acquired absence of kidney; Z89.421 Acquired absence of other right toe(s); Z79.82 Long term (current) use of aspirin; Z89.022 Acquired absence of left finger(s); Z20.822 Contact with and (suspected) exposure to COVID-19
CPT/HCPCS: J1644

== ENCOUNTER 2022-10-28 11:35 | Emergency (ER) | payer MEDICARE ==
[~2022-10-28] VITALS: Ht 162.6 cm; Wt 81.0 kg
[~2022-10-28 11:35] MED LIST changes: +ELIQUIS5 MG PO
[2022-10-28] MEDS ORDERED: MECLIZINE 2525 MG PO (11:50)
[2022-10-28] MEDS ORDERED: ENTRESTO 24-261 TAB (11:51)
[2022-10-28] MEDS ORDERED: AMOXICILLIN500 MG PO (11:51)
[2022-10-28] MEDS ORDERED: KEFLEX500 MG PO (12:17)
[2022-10-28 12:25] VITALS: BP 143/67
== END 2022-10-28 12:31 | disposition home or self-care (01) ==
LOC: ED 11:35
DX: R30.0 Dysuria (principal); I12.0 Hypertensive chronic kidney disease with stage 5 chronic kidney disease or end stage renal disease; E11.22 Type 2 diabetes mellitus with diabetic chronic kidney disease; N18.6 End stage renal disease; Z99.2 Dependence on renal dialysis; I25.10 Atherosclerotic heart disease of native coronary artery without angina pectoris; I25.2 Old myocardial infarction; Z79.4 Long term (current) use of insulin; Z85.528 Personal history of other malignant neoplasm of kidney; Z86.73 Personal history of transient ischemic attack (TIA), and cerebral infarction without residual deficits; Z86.16 Personal history of COVID-19

== ENCOUNTER 2022-11-23 12:15 | Observation (INO) | payer MEDICARE ==
[2022-11-23] VITALS (28 sets, daily range): BP systolic 102–132; BP diastolic 41–70
[~2022-11-23] VITALS: Ht 162.6 cm; Wt 81.0 kg
[~2022-11-23 12:15] MED LIST changes: +ENTRESTO 24-261 TAB; +MECLIZINE 2525 MG PO
--- NOTE | 2022-11-23 12:15 | NUR ---
PATIENT ARRIVED TO ROOM 10 VIA EMS FOR C/O CHEST PAIN. DR. WANG AT THE BEDSIDE.
[2022-11-23 12:41] LABS: BASO% 0.9 % (0-3); EOS% 2.2 % (0-8); HEMATOCRIT 33.8 % (39.0-50.0); HEMOGLOBIN 10.7 g/dl (14.0-18.0); IMMATURE GRANULOCYTES 0.1 % (0.0-5.0); LYMPH% 16.7 % (15-41); MEAN CELL VOLUME 99.7 fL CALC (80.0-100.0); MEAN CORPUSCULAR HGB 31.6 pG CALC (26.0-32.0); MEAN CORPUSCULAR HGB CONC 31.7 g/dL CAL (32.0-36.0); MONO% 6.9 % (2-13); NEUT# 9.42 thou/uL (1.82-7.42); NEUT% 73.2 % (42-76); RED BLOOD COUNT 3.39 mill/uL (4.70-6.10); RED CELL DISTRI WIDTH 15.5 % (11.5-15.5)
[2022-11-23] MEDS ORDERED: ELIQUIS5 MG PO (12:41)
[2022-11-23] MEDS ORDERED: ISOSORB MONO30 MG PO (12:42)
[2022-11-23 12:52] LABS: ALBUMIN 4.1 g/dL (3.2-5.0); POTASSIUM 3.9 mmol/l (3.5-5.1); TOTAL PROTEIN 7.3 g/dL (6.3-8.2)
[2022-11-23 13:04] LABS: BILIRUBIN, TOTAL 0.8 mg/dL (0.2-1.3); CREATININE 3.3 mg/dL (0.7-1.3)
--- NOTE | 2022-11-23 13:12 | NUR ---
Reassessment of patient completed. No distress noted.
--- NOTE | 2022-11-23 13:54 | NUR ---
PATIENT RESTING. NO C/O PAIN AT THIS TIME. FAMILY AT BEDSIDE.
--- NOTE | 2022-11-23 14:30 | NUR ---
Reassessment of patient completed. No distress noted.
--- NOTE | 2022-11-23 15:53 | NUR ---
FAMILY AT BEDSIDE. PATIENT RESTING IN BED, EYES CLOSED
--- NOTE | 2022-11-23 16:05 | NUR ---
Reassessment of patient completed. No distress noted.
--- NOTE | 2022-11-23 17:30 | NUR ---
Reassessment of patient completed. No distress noted.
--- NOTE | 2022-11-23 18:20 | NUR ---
ASSISTED PATIENT TO BEDSIDE FOR DINNER TRAY
--- NOTE | 2022-11-23 21:15 | NUR ---
Took patient glucose meter check, glucose meter read 164, the nurse was notified.
--- NOTE | 2022-11-23 21:40 | NUR ---
PT CAME UP FROM ER VIA WHEELCHAIR @2029. PT IS A/OX3, PRESENTS VERY TIRED AND EXHAUSTED. PT AT BEDSIDE. PT DENIES ANY PAIN AT THIS TIME. FIXTURE MAKER IN PLACE, ON RM AIR. FISTULA NOTED IN LT UPPER ARM. PT HAD PINKY ON LT HAND REMOVED, LT FOOT HAS DIGIT 3 AND 4 THAT HAVE BEEN REMOVED, AND RT FOOT HAS DIGIT 3 THAT HAD BEEN REMOVED. PT SKIN IS INTACT. ABLE TO AMBULATE WITH ASSIST. PT STATED USING A CANE OR SCOOTER AT HOME. PT BROUGHT IN 3 MEDICATIONS FROM HOME. MEDICATION HAVE BEEN RECONCILED AND WERE PLACED IN MEDROOM FOR TO SLATE SPLITTER TOMORROW. PT BLOOD SUGAR WAS 164 UPON ARRIVAL. CHANGE MADE IN LEVEMIR DOSAGE PER EMAR TORB FROM PHYSICIAN BOARDING ROOM FIXER. PT BLOOD PRESSURE WAS 103/40. HELD THE CLONIDINE 0.2MG PER EMAR DUE TO LOW BLOOD PRESSURE. PT LUNGS SOUNDS DIMINSHED BILATERAL LOWER LOBES. BUT DENIES ANY SOB OR RESPIRATORY DISTRESS. EDUCATED PT ON PLAN OF CARE FOR TONIGHT, HYPOGYLCEMIA S/S AND OFFERED SNACKS FOR THROUGHOUT NIGHT. ENCOURAGED PT TO USE CALL LIGHT. SAFETY PRECAUTIONS IN PLACE AND CALL LIGHT WITHIN REACH.
[2022-11-24] VITALS (9 sets, daily range): BP systolic 110–143; BP diastolic 49–90
--- NOTE | 2022-11-24 00:28 | NUR ---
PT STATED FEELING NAUSEOUS, OFFERED PT SOME GINGERALE AND CRACKERS. PT HAS BEEN ABLE TO TOLERATE THEM AT THIS TIME. WILL CONTINUE TO MONITOR. CALL LIGHT WITHIN REACH AND SAFETY PRECAUTIONS IN PLACE.
--- NOTE | 2022-11-24 01:10 | NUR ---
PT STATED FEELING ANXIOUS. ADMINISTERED MEDICATION PER EMAR. ENCOURAGED PT TO TURN OFF LIGHT AND TV TO HELP RELAX. CALL LIGHT WITHIN REACH AND SAFETY PRECAUTIONS IN PLACE.
--- NOTE | 2022-11-24 03:46 | NUR ---
PT COMPLAINED FEELING VERY DIZZY AND FAINT. VITALS WNL, GLUCOSE 125. PT HAS 5-6 SECOND PAUSE SHOWING ON LINOTYPE MACHINIST APPRENTICE, EKG ORDERED. INFORMED BOOKMAKER'S CLERK PHYSICIAN OF STATUS, NO NEW ORDERS AT THIS TIME. OFFERED PT A COLD TOWEL FOR FOREHEAD AND OVER EYES AND RECOMMENDED TURNING TV OFF. CALL LIGHT WITHIN REACH AND SAFETY PRECAUTIONS IN PLACE.
--- NOTE | 2022-11-24 05:01 | NUR ---
PT HAS FALLEN ASLEEP LAYING HIGH FOWLERS IN BED. NO S/S OF DISTRESS. CALL LIGHT WITHIN REACH AND SAFETY PRECAUTIONS IN PLACE.
--- NOTE | 2022-11-24 07:30 | NUR ---
nurse notified of patient glucose level was 68
--- NOTE | 2022-11-24 07:51 | NUR ---
PT RESTING COMFORTABLY. VITAL SIGNS STABLE. NO NEEDS AT THIS TIME.
--- NOTE | 2022-11-24 11:54 | NUR ---
PT RESTING COMFORTABLY. VITAL SIGNS STABLE. NO NEEDS AT THIS TIME.
--- NOTE | 2022-11-24 16:35 | NUR ---
PT RESTING COMFORTABLY IN BED. VITAL SIGNS STABLE. NO NEEDS AT THIS TIME.
--- NOTE | 2022-11-24 22:30 | NUR ---
PT IN BED WATCHING TV, DENIES PAIN OR DISCOMFRT. NO S/S OF DISTRESS NOTED. BREATHIGN EVEN AND UNLABORED. ASSESMENT COMPLETED. NO NEEDS OR CONCERN VICED. CALL LIGHT IN REACH AND BED IN LOWEST POSITION.
--- NOTE | 2022-11-25 00:45 | NUR ---
PT IN BED RESTING WITH EYES CLOSED BREATHIGN EVEN AND UNLABORED. NO S/S OF DISTRESS NOTED CALL LIGHT INREACH AND BED IN LOWEST POSITION.
--- NOTE | 2022-11-25 04:55 | NUR ---
PT IN BED RESTING WITH EYES CLSOEB BREATHING EVEN AND UNALORED. NO S/S OF DISTRESS NOTED. CALL LIGHT IN REACH AND BED IN LOWEST POSITION
[2022-11-25 05:24] LABS: HEMATOCRIT 30.2 % (39.0-50.0); HEMOGLOBIN 9.6 g/dl (14.0-18.0); MEAN CELL VOLUME 100.3 fL CALC (80.0-100.0); MEAN CORPUSCULAR HGB 31.9 pG CALC (26.0-32.0); MEAN CORPUSCULAR HGB CONC 31.8 g/dL CAL (32.0-36.0); RED BLOOD COUNT 3.01 mill/uL (4.70-6.10); RED CELL DISTRI WIDTH 15.7 % (11.5-15.5)
[2022-11-25 06:02] LABS: ALBUMIN 3.5 g/dL (3.2-5.0); MAGNESIUM 2.3 mg/dL (1.6-2.3); POTASSIUM 4.6 mmol/l (3.5-5.1); TOTAL PROTEIN 6.3 g/dL (6.3-8.2)
[2022-11-25 06:25] LABS: BILIRUBIN, TOTAL 0.3 mg/dL (0.2-1.3); CREATININE 7.3 mg/dL (0.7-1.3)
--- NOTE | 2022-11-25 06:36 | NUR ---
RECEIVED A CRITICAL CREATININE FROM LAB , PATIENT NURSE MADE AWARE.
[2022-11-25 07:01] VITALS: BP 111/26
[2022-11-25 07:02] VITALS: BP 117/34
--- NOTE | 2022-11-25 08:00 | NUR ---
PT UP IN CHAIR EATING BREAKFAST WITH HOB UP. ALERT AND OREINTED, PT HAS NO C/O PAIN AT THIS ITME. TELE ON ALL LEADS ATTACHED. IV TO THE RAC CLEAN AND INTACT. PT AMBULATES WELL TO BATHROOM FOR TOILETING. PT HAS CALL LIGHT WITHIN REACH AND ALL SAFETY MEASURES IN PLACE.
[2022-11-25 10:12] VITALS: BP 144/57
[2022-11-25 10:16] VITALS: BP 144/57
--- NOTE | 2022-11-25 12:00 | NUR ---
PT UP IN CHAIR AT BEDSIDE, PT ALERT AND OREINTED. PT HAS NO C/O PAIN AT THIS TIME. NO CHANGE IN STATUS. PT HAS CALL LIGHT WITHIN REACH.
[2022-11-25] MEDS ORDERED: VIBRAMYCIN100 M2 PO (12:16)
--- NOTE | 2022-11-25 14:56 | NUR ---
Discharge instructions given. Patient verbalizes understanding of same. Discharged in stable condition via Wheelchair to Home with staff. All belongings sent with pt.
--- NOTE | 2022-11-26 11:36 | NUR ---
FINAL BLOOD CULTURE SHARP TO 08/29 GROWING STAPH CAPITIS. NO NEW ORDERS.
== END 2022-11-25 14:48 | disposition home or self-care (01) ==
LOC: ED 12:15 → ED-I 12:36 → ED 12:36 → ED-I 17:12 → ED 17:51 → MS2 17:52
PROVIDERS: Family Medicine; ADMIT Internal Medicine; ATTEND Internal Medicine
DX: J18.9 Pneumonia, unspecified organism (principal); I13.2 Hypertensive heart and chronic kidney disease with heart failure and with stage 5 chronic kidney disease, or end stage renal disease; I50.9 Heart failure, unspecified; E11.22 Type 2 diabetes mellitus with diabetic chronic kidney disease; N18.6 End stage renal disease; I48.91 Unspecified atrial fibrillation; I25.10 Atherosclerotic heart disease of native coronary artery without angina pectoris; E78.5 Hyperlipidemia, unspecified; Z99.2 Dependence on renal dialysis; Z79.4 Long term (current) use of insulin; Z86.73 Personal history of transient ischemic attack (TIA), and cerebral infarction without residual deficits; Z86.16 Personal history of COVID-19; Z79.01 Long term (current) use of anticoagulants; Z95.5 Presence of coronary angioplasty implant and graft; Z90.5 Acquired absence of kidney; Z89.429 Acquired absence of other toe(s), unspecified side; Z89.022 Acquired absence of left finger(s); Z20.822 Contact with and (suspected) exposure to COVID-19; R07.9 Chest pain, unspecified

== ENCOUNTER 2022-12-06 11:12 | Emergency (ER) | payer MEDICARE, MEDICAID ==
[~2022-12-06] VITALS: Ht 162.6 cm; Wt 82.0 kg
[2022-12-06] VITALS (24 sets, daily range): BP systolic 114–163; BP diastolic 32–85
[~2022-12-06 11:12] MED LIST changes: +VIBRAMYCIN100 M2 PO
[2022-12-06 12:34] LABS: BASO% 0.9 % (0-3); EOS% 4.3 % (0-8); HEMATOCRIT 32.9 % (39.0-50.0); HEMOGLOBIN 10.2 g/dl (14.0-18.0); IMMATURE GRANULOCYTES 0.1 % (0.0-5.0); LYMPH% 27.4 % (15-41); MEAN CELL VOLUME 101.2 fL CALC (80.0-100.0); MEAN CORPUSCULAR HGB 31.4 pG CALC (26.0-32.0); MONO% 7.2 % (2-13); NEUT# 5.11 thou/uL (1.82-7.42); NEUT% 60.1 % (42-76); RED BLOOD COUNT 3.25 mill/uL (4.70-6.10); RED CELL DISTRI WIDTH 16.3 % (11.5-15.5)
[2022-12-06] MEDS ORDERED: ENTRESTO 24-261 TAB PO (12:54)
[2022-12-06] MEDS ORDERED: FUROSEMIDE20 MG PO (13:01)
[2022-12-06 13:08] LABS: ALBUMIN 4.1 g/dL (3.2-5.0); POTASSIUM 5.1 mmol/l (3.5-5.1); TOTAL PROTEIN 7.5 g/dL (6.3-8.2)
[2022-12-06 13:20] LABS: BILIRUBIN, TOTAL 0.5 mg/dL (0.2-1.3)
== END 2022-12-06 18:21 | disposition short-term general hospital (02) ==
LOC: ED 11:12
PROVIDERS: Nurse Practitioner
DX: I21.4 Non-ST elevation (NSTEMI) myocardial infarction (principal); E11.22 Type 2 diabetes mellitus with diabetic chronic kidney disease; I12.0 Hypertensive chronic kidney disease with stage 5 chronic kidney disease or end stage renal disease; N18.6 End stage renal disease; K21.9 Gastro-esophageal reflux disease without esophagitis; I25.2 Old myocardial infarction; Z99.2 Dependence on renal dialysis; Z79.4 Long term (current) use of insulin; Z86.73 Personal history of transient ischemic attack (TIA), and cerebral infarction without residual deficits; Z86.16 Personal history of COVID-19; Z20.822 Contact with and (suspected) exposure to COVID-19